=== PATIENT | male | born 1975 | race African-American/Black ===

== ENCOUNTER 2024-08-18 12:33 | Outpatient (OUT) | payer OTHER, SELFPAY ==
--- NOTE | 2024-08-18 13:45 | P.CN_ITS ---
Consult Note: HPI Data of Consult Patient: new to practice Consult date: 08/18/24 Requesting Physician: Sunny Goetz MD Primary Care Provider: SAGE MCDOWELL Consult Narrative Reason for consult: bilateral elbow, forearm, hand pain Narrative: 49yom who presents for evaluation. worsening pain in bilateral elbows, hands, forearms. denies trauma. previously had emg ordered, but was unable to have this completed. has continued in a series of provider directed home exericses >6 weeks, without lasting benefit. tried mobic, without benefit. uses tizanidine to help sleep. denies adverse med side effects. cc:: CC: Sunny Goetz MD Review of Systems ROS Status of ROS 10 or more systems reviewed and unremark able except as noted in history and below Exam Narrative Exam Narrative: Psych-alert and oriented x 3.? Attentive and appropriate, constitutionally normal, displays normal mood and affect per situation.? There are no obvious deficits in memory, reasoning, or intellect.? Skin-no obvious rashes, bruising, or erythema noted to the patient's area of pain.? Extremities-upper extremities are warm with minimal edema and palpable pulses. Cervical- no tenderness to palpation noted in the cervical spine and paraspinal musculature.? Pain is elicited with flexion, extension, and lateral rotation of the cervical spine.? Range of motion is diminished due to pain. Facet loading maneuvers are negative.? Strength-unremarkable and within normal limits with the exception to the bilateral extensor carpi radialis longus.? Sensory-no notable sensory deficits in the bilateral upper extremities to touch or pinprick with the exception to decreased sensation to the bilateral distal upper extremities. Coordination remains intact.? Gait remains non-antalgic. 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 failed conservative measures, as noted. given worsening symptoms, will have him get bilateral elbow and hand xrays, as well as emg of bilateral upper extremities to assess for ulnar neuropathy. he is in agreement. meds reviewed. will trial gabapentin 300mg qhs. follow up after imaging.
== END 2024-08-18 12:34 | disposition home or self-care (01) ==
LOC: PM 12:34
PROVIDERS: PCP Nurse Practitioner; Visit Provider Anesthesiology
DX: M25.521 Pain in right elbow (principal); M79.642 Pain in left hand; G56.20 Lesion of ulnar nerve, unspecified upper limb
CPT/HCPCS: G0463

== ENCOUNTER 2024-08-27 11:16 | Outpatient (OUT) | payer OTHER, SELFPAY ==
--- NOTE | 2024-08-27 11:28 | XR_ITS ---
The [address] [address] Patient Name: SIOBHAN QUIROZ MRN: [id number] date: 1975 Sex: M Assigned Patient Location: [facility] Current Patient Location: [facility] Accession/Order Number: [id number] Exam Date: 08/27/2024 11:35 Report Date: 08/27/2024 12:51 At the request of: ELVIA WARE Procedure: XR elbow RUSTY min 3v EXAMINATION: XR elbow RUSTY min 3v HISTORY: Bilateral Elbow Pain COMPARISON: No relevant comparison available. FINDINGS: RIGHT FINDINGS: BONES: Normal. No significant arthropathy or acute abnormality. SOFT TISSUES: Negative. No visible soft tissue swelling. OTHER: Negative. LEFT FINDINGS: BONES: Normal. No significant arthropathy or acute abnormality. SOFT TISSUES: Negative. No visible soft tissue swelling. OTHER: Negative. XR/XR elbow RUSTY min 3v IMPRESSION: RIGHT CONCLUSION: No abnormality LEFT CONCLUSION: No abnormality Electronically authenticated by: BARBARA GUTIERREZ Date: 08/27/2024 12:51
--- NOTE | 2024-08-27 11:28 | XR_ITS ---
The [address] [address] Patient Name: SIOBHAN QUIROZ MRN: [id number] date: 1975 Sex: M Assigned Patient Location: [facility] Current Patient Location: [facility] Accession/Order Number: [id number] Exam Date: 08/27/2024 11:35 Report Date: 08/27/2024 12:18 At the request of: ELVIA WARE Procedure: XR hand RUSTY min 3v EXAMINATION: XR hand RUSTY min 3v HISTORY: Bilateral Hand Pain COMPARISON: No relevant comparison available. FINDINGS: RIGHT FINDINGS: BONES: Normal. No significant arthropathy or acute abnormality. SOFT TISSUES: Negative. No visible soft tissue swelling. OTHER: Negative. LEFT FINDINGS: BONES: Subchondral cystic changes head of the third proximal phalanx SOFT TISSUES: Negative. No visible soft tissue swelling. OTHER: Negative. XR/XR hand RUSTY min 3v IMPRESSION: Right. No acute abnormality LEFT. Subchondral cystic changes head of the third proximal phalanx. Electronically authenticated by: BARBARA GUTIERREZ Date: 08/27/2024 12:18
--- OUTSIDE RECORDS SUMMARY | 2024-08-27 11:37 | XMS_ITS | CCD ---
Author Organization [facility] Inform ion [facility] Care Team Providers Care Door Closer Name Role Phone CARMEN SALAZAR Admitting Unavailable CARMEN SALAZAR Attending Unavailable REQUEST, NONE LISTED Primary Care Unavailable BARBARA GUTIERREZ V Consulting Unavailable BRODIE AYALA Consulting Unavailable MARTIN, CARMEN Faustin Consulting Unavailable KAREEM, TAPAN Consulting Unavailable [facility] Admitting Unava ilable [facility] Attending Unava ilable BARBARA GUTIERREZ V Consulting Unavailable [facility] Consulting Unava ilable MISC, DOCTOR Admitting Unavailable MISC, DOCTOR Attending Unavailable MISC, DOCTOR Primary Care Unavailable MISC, DOCTOR Consulting Unavailable MADAY GUDINO Admitting Unavailable BEERMAN, MADAY Attending Unavailable MISC, DOCTOR Primary Care Unavailable MADAY GUDINO Consulting Unavailable Robin, Bertha Barroso Primary Care Physician Robin, Bertha Barroso Attending Unavailable Robin, Bertha Barroso Attending Unavailable Robin, Bertha Barroso Attending Unavailable Robin, Bertha Barroso Attending Unavailable Robin, Bertha Barroso Attending Unavailable Robin, Bertha Barroso Admitting Unavailable Robin, Bertha Barroso Attending Unavailable Sunny Goetz MD Attending Unavailable Problems Active Problems Problem Classification Problem Date Documented Da te Episodic/Chronic Abdominal pain (5 sources) Unspecified abdominal pain; Translations: [Epigastric pain] Onset: 05-07-2019 Episodic Diabetes mellitus without complication (1 source) Prediabetes; Translations: [PREDIABETES] Onset: 05-07-2019 Other nervous system disorders (1 source) Carpal tunnel syndrome 09-26-2023 Chronic Other upper respiratory infections (1 source) Chronic sinusitis, unspecified; Translations: [CHRONIC SINUSITIS UNSPECIFIED] Onset: 05-07-2019 Chronic Pancreatic disorders (not diabetes) (4 sources) Acute pancreatitis without necrosis or infection, unspecified; Translations: [ACUTE PANCREATITIS WO NECRS/INF UNS] Onset: 06-26-2019 Unclassified (2 sources) Patient encounter status 09-26-2023 Past or Other Problems Problem Classification Problem Date Documented Da te Episodic/Chronic Headache; including migraine (1 source) Headache; Translations: [HEADACHE] Onset: 05-07-2019 Episodic Results Test Name Value Interpretation Reference Range Facility Family Medicine Office/Clini c Noteon 08-12-2024 Family Medicine Office/Clinic Note Family Medicine Office/Clinic Note HPI Staff Artur is a 49 year old male presenting follow up wrist pain Pain characteristics: SARMAD 05/30/24 EMG was ordered Called pt 08/11/24 he states he never had EMG done he had forgot about the order. Pain location: Bilateral wrist Onset: Right wrist worse and left wrist same Medication used: Right side is worse since the ASRMAD. Pt has been wearing brace, gloves, heat, ice, icy hot. Right wrist if holding things for more than a few minutes will have throbbing, dull ache, feels weak and then will have numbness in his thumb. Left wrist wrist will get dull ache will numbness to left elbow. Having a hard time sleeping. History of Present Illness pt presents today with worsening writs pain. right more than left Review of Systems PHQ Score Initial Depression Screen Score: 0 SCORE Physical Exam Vitals & Measurements HR: 64(Peripheral) RR: 18 BP: 130/82 HT: 66 in HT: 167.8 cm WT: 101.3 kg WT: 223.328 lb BMI: 35.98 General: alert, no acute distress ENMT: oral mucosa moist, no pharyngeal erythema or exudate Cardiovascular: regular rate and rhythm, normal peripheral perfusion Respiratory: Lungs CTA, respirations non labored Extremities: no deformity, no trauma Neurological: oriented x 4, LOC appropriate for age, CN II-XII intact, motor strength equal & normal bilaterally, speech normal positive Phalens and Tinels sign on exam today Assessment/Plan 1. Bilateral wrist pain (M25.531: Pain in right wrist) pt c/o worsening wrist pain. right more than left. he is struggling to do anything with right wrist and hand. thumb keeps going numb. difficult to grasp things. has been wearing braces. EMG re ordered through [facility] in [place]. will send referral to pain management in [place] as well. Ordered: EMG Bilateral Upper Extremity (BUE) [facility] [place], [place] External Ambulatory Referral 2. Carpal tunnel syndrome (G56.00: Carpal tunnel syndrome, unspecified upper limb) discussed he will eventually need surgery but he is not interested or able to have surgery at this time. will send referral to pain management for further evaluation and treatment. medrol dose pack sent in he will also continue meloxicam Ordered: EMG Bilateral Upper Extremity (BUE) [facility] [place] [place] External Ambulatory Referral 3. BMI 35.0-35.9,adult (Z68.35: Body mass index [BMI] 35.0-35.9, adult) BMI education given Ordered: EMG Bilateral Upper Extremity (BUE) [facility] [place] [place] External Ambulatory Referral 4. Non-smoker (Z78.9: Other specified health status) continue not smoking Ordered: EMG Bilateral Upper Extremity (BUE) [facility] [place] [place] External Ambulatory Referral Orders: methylPREDNISolone, = 1 packet(s), Oral, Once, as directed on package labeling, # 21 tab(s), Refills(s) 0, Pharmacy: [facility]/pharmacy #[id number], 176.8, cm, 05/30/24 11:38:00 EST, Height/Length Dosing, 99.3, kg, 05/30/24 11:38:00 EST, Weight Dosing methylPREDNISolone, = 1 packet(s), Oral, Once, as directed on package labeling, # 21 tab(s), Refills(s) 0, Pharmacy: [facility] #[id number], 167.8, cm, 08/11/24 15:33:00 EST, Height/Length Dosing, 101.3, kg, 08/11/24 15:33:00 EST, Weight Dosing Follow-up No qualifying data available Problem List/Past Medical History Ongoing Bilateral wrist pain Carpal tunnel syndrome Colon cancer screening Left shoulder pain Obesity (BMI 30-39.9) Wellness examination Historical No qualifying data Procedure/Surgical History Surgery (2015). Medications meloxicam 15 mg Tab, 15 mg= 1 tab(s), Oral, Daily methylPREDNISolone 4 mg tab dosepak, 1 packet(s), Oral, Once Allergies No Known Allergies Social History Substance Abuse Past, 1-2 times per week, Ready to change: No., 09/26/2023 Tobacco Former smoker, quit more than 30 days ago Tobacco Use:. Never Smokeless Tobacco Use:. Cigarettes, Household tobacco concerns: No., 05/30/2024 [facility] Comment on above: Result Comment: Elec lindsayally Signed By: Bertha Shepard\.br\Date and Time Signed: 08/12/24 09:46 EST Ambulatory Visit Summaryon 0 08-11-2024 Ambulatory Visit Summary Ambulatory Visit Summary ARTUR PHAM :1975 Visit Date:08/11/2024 Ambulatory Visit Instructions Your Diagnosis BMI 35.0-35.9,adult Non-smoker Your Care Team Attending Physician - Bertha Shepard Primary Care Physician - Bertha Shepard This Is Your Medications List meloxicam (meloxicam 15 mg Tab) Procedures Performed Surgery (2015). Discharge Vitals Heart Rate (Peripheral) 64 Respiratory Rate 18 Blood Pressure 130/82 Height 167.8 cm Height 66 in Weight 101.3 kg Weight 223.328 lb BMI 35.98 Medications What How Much When Instructions Unchanged meloxicam (meloxicam 15 mg Tab) 1 Tablets By Mouth Every day Allergies No Known Allergies Problems Ongoing - Any problem that you are currently receiving treatment for. Carpal tunnel syndrome Colon cancer screening Left shoulder pain Obesity (BMI 30-39.9) Wellness examination Patient Survey You may receive a survey via text or e-mail asking about your office visit. Please share your experience with us by completing your survey. We appreciate your feedback and thank you for choosing us for your care. [facility] Family Medicine Office/Clini c Noteon 05-30-2024 Family Medicine Office/Clinic Note Family Medicine Office/Clinic Note Chief Complaint Rt hand tingling HPI Staff Rt hand pain & tingling for the past few months. Does wake him at night. OTC Tylenol & Aleve do help some with pain. History of Present Illness pt presents today for worsening carpal tunnel symptoms Review of Systems PHQ Score Initial Depression Screen Score: 0 SCORE Physical Exam Vitals & Measurements T: 36.9 ???C(Tympanic) HR: 72(Peripheral) RR: 18 BP: 130/82 SpO2: 97% HT: 70 in HT: 176.8 cm WT: 99.3 kg WT: 218.919 lb BMI: 31.77 General: alert, no acute distress ENMT: oral mucosa moist, no pharyngeal erythema or exudate Cardiovascular: regular rate and rhythm, normal peripheral perfusion Respiratory: Lungs CTA, respirations non labored Extremities: no deformity, no trauma Neurological: oriented x 4, LOC appropriate for age, CN II-XII intact, motor strength equal & normal bilaterally, speech normal Assessment/Plan 1. Carpal tunnel syndrome (G56.00: Carpal tunnel syndrome, unspecified upper limb) right lower arm, wrist hand pain and tingling is worsening. will order EMG, Medrol dose pack and meloxicam. discussed referral for surgery but he is not ready for that quite yet. 2. BMI 31.0-31.9,adult (Z68.31: Body mass index [BMI] 31.0-31.9, adult) BMI education given 3. Obesity (BMI 30-39.9) (E66.9: Obesity, unspecified) see above 4. Former smoker (Z87.891: Personal history of nicotine dependence) continue not smokin Orders: meloxicam, 15 mg = 1 tab(s), Oral, Daily, # 90 tab(s), Refills(s) 0, Pharmacy: [facility] #[id number], 176.8, cm, 11/20/23 16:07:00 EDT, Height/Length Dosing, 96.3, kg, 11/20/23 16:07:00 EDT, Weight Dosing meloxicam, 15 mg = 1 tab(s), Oral, Daily, # 90 tab(s), Refills(s) 0, Pharmacy: [facility]/pharmacy #[id number], 176.8, cm, 05/30/24 11:38:00 EST, Height/Length Dosing, 99.3, kg, 05/30/24 11:38:00 EST, Weight Dosing methylPREDNISolone, = 1 packet(s), Oral, Once, as directed on package labeling, # 21 tab(s), Refills(s) 0, Pharmacy: [facility] #[id number], 176.8, cm, 11/20/23 16:07:00 EDT, Height/Length Dosing, 96.3, kg, 11/20/23 16:07:00 EDT, Weight Dosing methylPREDNISolone, = 1 packet(s), Oral, Once, as directed on package labeling, # 21 tab(s), Refills(s) 0, Pharmacy: [facility]/pharmacy #[id number], 176.8, cm, 05/30/24 11:38:00 EST, Height/Length Dosing, 99.3, kg, 05/30/24 11:38:00 EST, Weight Dosing Follow-up No qualifying data available Problem List/Past Medical History Ongoing Carpal tunnel syndrome Colon cancer screening Left shoulder pain Obesity (BMI 30-39.9) Wellness examination Historical No qualifying data Procedure/Surgical History Surgery (2015). Medications meloxicam 15 mg Tab, 15 mg= 1 tab(s), Oral, Daily methylPREDNISolone 4 mg tab dosepak, 1 packet(s), Oral, Once Allergies No Known Allergies Social History Substance Abuse Past, 1-2 times per week, Ready to change: No., 09/26/2023 Tobacco Former smoker, quit more than 30 days ago Tobacco Use:. Never Smokeless Tobacco Use:. Cigarettes, Household tobacco concerns: No., 05/30/2024 [facility] Comment on above: Result Comment: Elec tronically Signed By: Bertha Shepard\.br\Date and Time Signed: 05/30/24 12:22 EST Physician Orderon 11-21-2023 Physician Order [id number] TIFF [facility] Ambulatory Visit Summaryon 0 11-20-2023 Ambulatory Visit Summary ARTUR PHAM :1975 Visit Date:11/20/2023 Ambulatory Visit Instructions Your Diagnosis Left shoulder pain BMI 30.0-30.9,adult Former smoker Your Care Team Attending Physician - Bertha Shepard Primary Care Physician - Bertha Shepard This Is Your Medications List meloxicam (meloxicam 15 mg Tab) methylPREDNISolone (methylPREDNISolone 4 mg tab dosepak) Procedures Performed Surgery (2016). Discharge Vitals Heart Rate (Peripheral) 74 Respiratory Rate 18 Blood Pressure 122/80 Height 176.8 cm Height 70 in Weight 96.30 kg Weight 211.86 lb BMI 30.81 Medications What How Much When Instructions Unchanged meloxicam (meloxicam 15 mg Tab) 1 Tablets By Mouth Every day Pickup at [facility] #[id number] Unchanged methylPREDNISolone (methylPREDNISolone 4 mg tab dosepak) 1 Packets By Mouth Once as directed on package labeling Pickup at [facility] #[id number] Pharmacy Information [facility] #[id number]: [address], [place] [id number] [phone] Allergies No Known Allergies Problems Ongoing - Any problem that you are currently receiving treatment for. Carpal tunnel syndrome Colon cancer screening Left shoulder pain Wellness examination Patient Survey You may receive a survey via text or e-mail asking about your office visit. Please share your experience with us by completing your survey. We appreciate your feedback and thank you for choosing us for your care. [facility] Family Medicine Office/Clini c Noteon 11-20-2023 Family Medicine Office/Clinic Note HPI Staff Patient presents today for acute visit. Pain characteristics: Pain location: left shoulder blade pain Intensity:5/10 Onset: 2 weeks Medication used: Motrin Intermittent, Aching/burning, no injury that he knows of. Does have Radiculopathy down left arm. Reaching forward. History of Present Illness pt c/o left shoulder pain Review of Systems PHQ Score Initial Depression Screen Score: 0 SCORE Physical Exam Vitals & Measurements HR: 74(Peripheral) RR: 18 BP: 122/80 SpO2: 96% HT: 70 in HT: 176.8 cm WT: 96.30 kg WT: 211.86 lb BMI: 30.81 General: alert, no acute distress ENMT: oral mucosa moist, no pharyngeal erythema or exudate Cardiovascular: regular rate and rhythm, normal peripheral perfusion Respiratory: Lungs CTA, respirations non labored Extremities: no deformity, no trauma Neurological: oriented x 4, LOC appropriate for age, CN II-XII intact, motor strength equal & normal bilaterally, speech normal Assessment/Plan 1. Left shoulder pain (M25.512: Pain in left shoulder) Left shoulder pain more in the back by scapula and it wraps around and down his arm. will order meloxicam, medrol dose pack and x ray. pt states he previously had bone spurs in right shoulder. 2. BMI 30.0-30.9,adult (Z68.30: Body mass index [BMI] 30.0-30.9, adult) BMI education complete 3. Former smoker (Z87.891: Personal history of nicotine dependence) continue not smoking Orders: meloxicam, 15 mg = 1 tab(s), Oral, Daily, # 90 tab(s), Refills(s) 0, Pharmacy: [facility] #[id number], 176.8, cm, 11/20/23 16:07:00 EDT, Height/Length Dosing, 96.3, kg, 11/20/23 16:07:00 EDT, Weight Dosing meloxicam, 15 mg = 1 tab(s), Oral, Daily, # 30 tab(s), Refills(s) 5, Pharmacy: [facility] #[id number], 176.8, cm, 10/15/23 10:24:00 EDT, Height/Length Dosing, 97.5, kg, 10/15/23 10:24:00 EDT, Weight Dosing methylPREDNISolone, = 1 packet(s), Oral, Once, as directed on package labeling, # 21 tab(s), Refills(s) 0, Pharmacy: [facility] #[id number], 176.8, cm, 11/20/23 16:07:00 EDT, Height/Length Dosing, 96.3, kg, 11/20/23 16:07:00 EDT, Weight Dosing methylPREDNISolone, = 1 packet(s), Oral, Once, as directed on package labeling, # 21 tab(s), Refills(s) 0, Pharmacy: [facility] #[id number], 176.8, cm, 10/15/23 10:24:00 EDT, Height/Length Dosing, 97.5, kg, 10/15/23 10:24:00 EDT, Weight Dosing Follow-up No qualifying data available Problem List/Past Medical History Ongoing Carpal tunnel syndrome Colon cancer screening Left shoulder pain Wellness examination Historical No qualifying data Procedure/Surgical History Surgery (2015). Medications meloxicam 15 mg Tab, 15 mg= 1 tab(s), Oral, Daily methylPREDNISolone 4 mg tab dosepak, 1 packet(s), Oral, Once Allergies No Known Allergies Social History Substance Abuse Past, 1-2 times per week, Ready to change: No., 09/26/2023 Tobacco Former smoker, quit more than 30 days ago Tobacco Use:. Cigarettes, Household tobacco concerns: No., 11/20/2023 [facility] Comment on above: Result Comment: Elec tronically Signed By: Bertha Shepard\.br\Date and Time Signed: 11/20/23 16:52 EDT Lab Reportson 11-05-2023 Lab Reports [id number] 0TIFF Normal [facility] Ambulatory Visit Summaryon 0 10-15-2023 Ambulatory Visit Summary ARTUR PHAM :1975 Visit Date:10/15/2023 Ambulatory Visit Instructions Your Diagnosis BMI 31.0-31.9,adult Former smoker Marijuana use Your Care Team Attending Physician - Bertha Shepard Primary Care Physician - Bertha Shepard This Is Your Medications List meloxicam (meloxicam 15 mg Tab) Procedures Performed Surgery (2015). Discharge Vitals Heart Rate (Peripheral) 70 Respiratory Rate 18 Blood Pressure 122/80 Height 176.8 cm Height 70 in Weight 97.5 kg Weight 214.5 lb BMI 31.19 Medications What How Much When Instructions Unchanged meloxicam (meloxicam 15 mg Tab) 1 Tablets By Mouth Every day Allergies No Known Allergies Problems Ongoing - Any problem that you are currently receiving treatment for. Carpal tunnel syndrome Colon cancer screening Wellness examination Patient Survey You may receive a survey via text or e-mail asking about your office visit. Please share your experience with us by completing your survey. We appreciate your feedback and thank you for choosing us for your care. Normal [facility] Family Medicine Office/Clini c Noteon 10-15-2023 Family Medicine Office/Clinic Note HPI Staff Artur is a 48 year old male presenting for acute visit SARMAD: 09/26/23 Carpal tunnel Bilaterally, started Medrol dose pack and meloxicam, did discuss surgery but pt stated he wasn't ready for surgery. Does wears braces at night Current Concerns: pt states the meloxicam did help he hasn't had any pain. Pt isn't wearing braces anymore and states he has no more burning or numbness and is able to sleep at night History of Present Illness pt presents today for follow up on carpal tunnel pain Review of Systems PHQ Score Initial Depression Screen Score: 0 SCORE Physical Exam Vitals & Measurements HR: 70(Peripheral) RR: 18 BP: 122/80 SpO2: 98% HT: 70 in HT: 176.8 cm WT: 97.5 kg WT: 214.5 lb BMI: 31.19 General: alert, no acute distress ENMT: oral mucosa moist, no pharyngeal erythema or exudate Cardiovascular: regular rate and rhythm, normal peripheral perfusion Respiratory: Lungs CTA, respirations non labored Extremities: no deformity, no trauma Neurological: oriented x 4, LOC appropriate for age, CN II-XII intact, motor strength equal & normal bilaterally, speech normal Assessment/Plan 1. Carpal tunnel syndrome (G56.00: Carpal tunnel syndrome, unspecified upper limb) RUSTY wrists are feeling much better. pt does not need to use his wrist braces even anymore. will send refills. all questions answered. RTC 1 year for annual wellness labs 2. BMI 31.0-31.9,adult (Z68.31: Body mass index [BMI] 31.0-31.9, adult) bmi eduction complete 3. Former smoker (Z87.891: Personal history of nicotine dependence) continue not smoking 4. Marijuana use (F12.90: Cannabis use, unspecified, uncomplicated) consider not using marijuana Orders: meloxicam, 15 mg = 1 tab(s), Oral, Daily, # 30 tab(s), Refills(s) 0, Pharmacy: [facility] #[id number], 176.8, cm, 09/26/23 9:25:00 EDT, Height/Length Dosing, 95.9, kg, 09/26/23 9:25:00 EDT, Weight Dosing meloxicam, 15 mg = 1 tab(s), Oral, Daily, # 30 tab(s), Refills(s) 5, Pharmacy: [facility] #[id number], 176.8, cm, 10/15/23 10:24:00 EDT, Height/Length Dosing, 97.5, kg, 10/15/23 10:24:00 EDT, Weight Dosing methylPREDNISolone, = 1 packet(s), Oral, Once, as directed on package labeling, # 21 tab(s), Refills(s) 0, Pharmacy: [facility] #[id number], 176.8, cm, 10/15/23 10:24:00 EDT, Height/Length Dosing, 97.5, kg, 10/15/23 10:24:00 EDT, Weight Dosing Follow-up No qualifying data available Problem List/Past Medical History Ongoing Carpal tunnel syndrome Colon cancer screening Wellness examination Historical No qualifying data Procedure/Surgical History Surgery (2016). Medications meloxicam 15 mg Tab, 15 mg= 1 tab(s), Oral, Daily, 5 refills methylPREDNISolone 4 mg tab dosepak, 1 packet(s), Oral, Once Allergies No Known Allergies Social History Substance Abuse Past, 1-2 times per week, Ready to change: No., 09/26/2023 Tobacco Former smoker, quit more than 30 days ago Tobacco Use:. Cigarettes, Household tobacco concerns: No., 10/15/2023 [facility] Comment on above: Result Comment: Elec tronically Signed By: Bertha Shepard\.br\Date and Time Signed: 10/15/23 10:42 EDT Formson 10-15-2023 Forms [id number] 0TIFF [facility] Reminderson 10-02-2023 Reminders - From: Bertha Shepard To: [facility] - Clinical; Sent: 09/27/2023 08:17:25 EDT Show up: 09/27/2023 08:18:00 EDT Subject: Ambulatory Reminder Due Date/Time: 09/28/2023 08:17:00 EDT Labs look good Results: Date Result Name Ind Value Ref Range 09/26/2023 9:43 WBC 4.3 E9/L (4.0 - 11.0) 09/26/2023 9:43 RBC 5.2 E12/L (4.3 - 5.9) 09/26/2023 9:43 HGB 15.0 gm/dL (13.5 - 17.5) 09/26/2023 9:43 Hct 46.2 % (37.7 - 49.0) 09/26/2023 9:43 MCV 89.7 fL (80.0 - 100.0) 09/26/2023 9:43 MCH 29.1 pg (27.0 - 34.0) 09/26/2023 9:43 MCHC 32.5 gm/dL (31.4 - 36.0) 09/26/2023 9:43 RDW 13.3 % (10.9 - 14.2) 09/26/2023 9:43 Platelet 209.0 E9/L (150.0 - 500.0) 09/26/2023 9:43 MPV 9.2 fL (6.4 - 10.8) 09/26/2023 9:43 Neutro Auto 42.5 % (36.0 - 75.0) 09/26/2023 9:43 Lymph Auto 40.6 % (14.0 - 50.0) 09/26/2023 9:43 [place] Auto 9.3 % (4.0 - 14.0) 09/26/2023 9:43 Eos Auto 5.5 % (0.0 - 8.0) 09/26/2023 9:43 Basophil Auto ((H)) 2.1 % (0.0 - 2.0) 09/26/2023 9:43 Neutro Absolute ((L)) 1.8 E9/L (2.0 - 7.5) 09/26/2023 9:43 Lymph Absolute 1.8 E9/L (1.0 - 4.0) 09/26/2023 9:43 [place] Absolute 0.4 E9/L (0.2 - 1.0) 09/26/2023 9:43 Eos Absolute 0.2 E9/L (0.0 - 0.5) 09/26/2023 9:43 Basophil Absolute 0.1 E9/L (0.0 - 0.2) 09/26/2023 9:43 Glucose Lvl 95 mg/dL (55 - 199) 09/26/2023 9:43 BUN 20 mg/dL (5 - 21) 09/26/2023 9:43 Creatinine 0.8 mg/dL (0.5 - 1.3) 09/26/2023 9:43 eGFR 108 mL/min/1.73 m2 (>=59 - ) 09/26/2023 9:43 BUN/Creat Ratio ((H)) 25 (10 - 20) 09/26/2023 9:43 Sodium Lvl 138 mmol/L (135 - 145) 09/26/2023 9:43 Potassium Lvl 3.9 mmol/L (3.5 - 5.3) 09/26/2023 9:43 Chloride 108 mmol/L (101 - 111) 09/26/2023 9:43 CO2 23 mmol/L (21 - 31) 09/26/2023 9:43 AGAP 11 mEq/L (6 - 16) 09/26/2023 9:43 Calcium Lvl 9.0 mg/dL (8.9 - 11.1) 09/26/2023 9:43 Alk Phos 70 Int._Unit/L (21 - 98) 09/26/2023 9:43 ALT 18 Int._Unit/L (6 - 46) 09/26/2023 9:43 AST 18 Int._Unit/L (5 - 43) 09/26/2023 9:43 Total Protein 7.2 gm/dL (6.0 - 7.8) 09/26/2023 9:43 Albumin Lvl 4.6 gm/dL (3.3 - 5.0) 09/26/2023 9:43 Globulin 2.6 gm/dL (1.4 - 4.0) 09/26/2023 9:43 A/G Ratio 1.8 (1.1 - 2.2) 09/26/2023 9:43 Bili Total 0.6 mg/dL (0.0 - 1.1) 09/26/2023 9:43 Chol ((H)) 201 mg/dL (120 - 200) 09/26/2023 9:43 Trig 61 mg/dL ( - <=149) 09/26/2023 9:43 HDL 57 mg/dL 09/26/2023 9:43 LDL Direct 126 mg/dL ( - <=129) 09/26/2023 9:43 VLDL 12 mg/dL (7 - 40) 09/26/2023 9:43 TSH 0.39 mcIU/mL (0.34 - 5.60) 09/26/2023 9:43 PSA Scrn Tot. 1.2 ng/mL (0.1 - 3.5) Patient informed and voiced understanding. Normal [facility] CBC w/ Auto Diffon 4 Basophils/100 WBC (Bld) 2.1 % High 0.0-2.0 [facility] Comment on above: Performed By: #### 1 [id number] #### [facility] [address] [place] [address] Basophils/Leukocytes Auto (Bld) [Pure # fraction] 0.1 E9/L Normal 0.0-0.2 [facility] Comment on above: Performed By: #### 1 [id number] #### [facility] [address] [place] [address] Eosinophils (Bld) [#/Vol] 0.2 E9/L Normal 0.0-0.5 [facility] Comment on above: Performed By: #### 1 [id number] #### [facility] [address] [place] [id number] Eosinophils/100 WBC (Bld) 5.5 % Normal 0.0-8.0 [facility] Comment on above: Performed By: #### 1 [id number] [id number], [id number], [id number] #### [facility] [address] [place] [address] Erythrocyte distribution width (RBC) [Ratio] 13.3 % Normal 10.9-14.2 [facility] Comment on above: Performed By: #### 1 [id number], [id number], [id number], [id number] #### [facility] [address] [place] [address] Hematocrit (Bld) [Volume fraction] 46.2 % Normal 37.7-49.0 [facility] Comment on above: Performed By: #### 1 [id number], [id number], 2325859, 1175347, 5000647, [id number] #### [facility] [address] [place] [address] Hemoglobin (Bld) [Mass/Vol] 15.0 g/dL Normal 13.5-17.5 [facility] Comment on above: Performed By: #### 1 6983027, 7278128, 9727967, 2808055, 1811546, 52772101 #### [facility] [address] [place] [address] Lymphocytes (Bld) [#/Vol] 1.8 E9/L Normal 1.0-4.0 [facility] Comment on above: Performed By: #### 1 8896200, 3546406, 8913076, 9044480, 6743509, 80998603 #### [facility] [address] [place] [address] Lymphocytes/100 WBC (Bld) 40.6 % Normal 14.0-50.0 [facility] Comment on above: Performed By: #### 1 9145562, 6826188, 3582164, 6268223, 1079388, 34173690 #### [facility] [address] [place] [address] MCH (RBC) [Entitic mass] 29.1 pg Normal 27.0-34.0 [facility] Comment on above: Performed By: #### 1 4711900, 7512382, 7312163, 7145705, 9165802, 14273078 #### [facility] [address] [place] [address] MCHC (RBC) [Mass/Vol] 32.5 g/dL Normal 31.4-36.0 [facility] Comment on above: Performed By: #### 1 3046877, 6162794, 3638240, 4871424, 5834456, 69196052 #### [facility] [address] [place] [address] MCV (RBC) [Entitic vol] 89.7 fL Normal 80.0-100.0 [facility] Comment on above: Performed By: #### 1 7952257, 6068653, 9579606, 7891296, 1779222, 80927349 #### [facility] [address] [place] [address] Monocytes (Bld) [#/Vol] 0.4 E9/L Normal 0.2-1.0 [facility] Comment on above: Performed By: #### 1 7285426, 0284974, 3087415, 7721452, 1371342, 52794122 #### [facility] [address] [place] [address] Neutrophils (Bld) [#/Vol] 1.8 E9/L Low 2.0-7.5 [facility] Comment on above: Performed By: #### 1 2355493, 9487436, 3662433, 8707476, 0404080, 26758988 #### [facility] [address] [place] [address] Neutrophils/100 WBC (Bld) 42.5 % Normal 36.0-75.0 [facility] Comment on above: Performed By: #### 1 0049701, 3893229, 8844272, 2099006, 6907958, 63393831 #### [facility] [address] [place] [address] Platelet mean volume (Bld) [Entitic vol] 9.2 fL Normal 6.4-10.8 [facility] Comment on above: Performed By: #### 1 5667840, 8569180, 8576479, 8106093, 9477167, 61992469 #### [facility] [address] [place] [address] Platelets (Bld) [#/Vol] 209.0 E9/L Normal 150.0-500.0 [facility] Comment on above: Performed By: #### 1 5758933, 5297338, 0858217, 3854825, 2687619, 52408731 #### [facility] [address] [place] [address] RBC (Bld) [#/Vol] 5.2 E12/L Normal 4.3-5.9 [facility] Comment on above: Performed By: #### 1 1411899, 2246439, 3066298, 6954350, 4724022, 96160497 #### [facility] [address] [place] [address] WBC corrected for nucl RBC Auto (Bld) [#/Vol] 4.3 E9/L Normal 4.0-11.0 [facility] Comment on above: Performed By: #### 1 9164081, 7350534, 2446202, 2342379, 0549898, 45976882 #### [facility] [address] [place] [address] CHEMISTRYOrdered By: SYSTEM SYSTEM on 09-26-2023 Albumin [Mass/Vol] 4.6 g/dL Normal 3.3 - 5.0 gm/dL [facility] Albumin/Globulin [Mass ratio] 1.8 {ratio} Normal 1.1 - 2.2 [facility] ALP [Catalytic activity/Vol] 70 [iU]/d Normal 21 - 98 Int._Unit/L [facility] ALT No additional P-5'-P [Catalytic activity/Vol] 18 [iU]/d Normal 6 - 46 Int._Unit/L [facility] Anion gap [Moles/Vol] 11 mmol/L Normal 6 - 16 mEq/L R emisol Chem AST [Catalytic activity/Vol] 18 [iU]/d Normal 5 - 43 Int._Unit/L [facility] Bilirubin [Mass/Vol] 0.6 mg/dL Normal 0.0 - 1 .1 mg/dL [facility] Calcium [Mass/Vol] 9.0 mg/dL Normal 8.9 - 11. 1 mg/dL [facility] Chloride [Moles/Vol] 108 mmol/L Normal 101 - 1 11 mmol/L [facility] Cholesterol [Mass/Vol] 201 mg/dL High 120 - 200 mg/dL [facility] Cholesterol in HDL [Mass/Vol] 57 mg/dL Invalid Interpretation Code [facility] Comment on above: Result Comment: '>= 60 LOW RISK' '<= 40 HIGH RISK' Cholesterol in LDL [Mass/Vol] 126 mg/dL Normal <=129mg/dL [facility] Cholesterol in VLDL [Mass/Vol] 12 mg/dL Normal 7 - 40 mg/dL [facility] CO2 [Moles/Vol] 23 mmol/L Normal 21 - 31 mmol/L [facility] Creatinine [Mass/Vol] 0.8 mg/dL Normal 0.5 - 1.3 mg/dL [facility] eGFR 108 mL/min/1.73 m2 Normal >=59mL/mi n/1. 73 m2 [facility] Globulin (S) [Mass/Vol] 2.6 g/dL Normal 1.4 - 4.0 gm/dL [facility] Glucose [Mass/Vol] 95 mg/dL Normal 55 - 199 mg/dL [facility] Potassium [Moles/Vol] 3.9 mmol/L Normal 3.5 - 5.3 mmol/L [facility] Prostate specific Ag [Mass/Vol] 1.2 ng/mL Normal 0.1 - 3.5 ng/mL [facility] Comment on above: Interpretive Data: T he concentration of PSA determined by different manufacturers can vary due to differences in assay methods and reagent specificity. Values obtained from different assay methods cannot be used interchangeably. The methodology used for this result was chemiluminescence using [employer] Access Hybritech PSA reagent. Protein [Mass/Vol] 7.2 g/dL Normal 6.0 - 7.8 gm/dL [facility] Sodium [Moles/Vol] 138 mmol/L Normal 135 - 145 mmol/L [facility] Triglyceride [Mass/Vol] 61 mg/dL Normal <=149mg/dL [facility] TSH Qn 0.39 m[IU]/L Normal 0.34 - 5.60 mcIU/mL [facility] Urea nitrogen [Mass/Vol] 20 mg/dL Normal 5 - 21 mg/dL [facility] Urea nitrogen/Creatinine [Mass ratio] 25 mg/mg High 10 - 20 [facility] CMPon 09-26-2023 Albumin [Mass/Vol] 4.6 g/dL Normal 3.3-5.0 [facility] Comment on above: Performed By: #### 1 2464904, 9086868, 1621525, 4364560, 5034831, 55927383 #### [facility] [address] [place] [address] Albumin/Globulin (S) [Mass conc ratio] 1.8 Normal 1.1-2.2 [facility] Comment on above: Performed By: #### 1 2620652, 4344584, 3073724, 2006884, 7278969, 04161469 #### [facility] [address] [place] [address] ALP [Catalytic activity/Vol] 70 Int._Unit/L Normal 21-98 [facility] Comment on above: Performed By: #### 1 0177855, 0432527, 8963449, 3732545, 9693938, 54658178 #### [facility] [address] [place] [address] ALT No additional P-5'-P [Catalytic activity/Vol] 18 Int._Unit/L Normal 6-46 [facility] Comment on above: Performed By: #### 1 6422066, 6598320, 7098788, 0114153, 2340146, 56899165 #### [facility] [address] [place] [address] Anion gap [Moles/Vol] 11 mmol/L Normal 6-16 [facility] Comment on above: Performed By: #### 1 6054452, 7019329, 9151350, 1633355, 8415686, 99724966 #### [facility] [address] [place] [address] AST [Catalytic activity/Vol] 18 Int._Unit/L Normal 5-43 [facility] Comment on above: Performed By: #### 1 6143486, 0747570, 3160076, 0886074, 6368444, 52294845 #### [facility] [address] [place] [address] Bilirubin [Mass/Vol] 0.6 mg/dL Normal 0.0-1.1 [facility] Comment on above: Performed By: #### 1 6197090, 6814938, 7875538, 8546780, 7540529, 77515281 #### [facility] [address] [place] [address] Calcium [Mass/Vol] 9.0 mg/dL Normal 8.9-11.1 [facility] Comment on above: Performed By: #### 1 0096106, 1493325, 2244421, 3289329, 0307441, 67428228 #### [facility] [address] [place] [address] Chloride [Moles/Vol] 108 mmol/L Normal 101-111 [facility] Comment on above: Performed By: #### 1 0323712, 2753072, 1085427, 5495697, 5288187, 98672093 #### [facility] [address] [place] [address] CO2 [Moles/Vol] 23 mmol/L Normal 21-31 [facility] Comment on above: Performed By: #### 1 9244474, 5241941, 0095834, 4940291, 9557850, 70937246 #### [facility] [address] [place] [address] Creatinine [Mass/Vol] 0.8 mg/dL Normal 0.5-1.3 [facility] Comment on above: Performed By: #### 1 1739801, 7406778, 3972921, 7516368, 9889751, 74729091 #### [facility] [address] [place] [address] Globulin (S) [Mass/Vol] 2.6 g/dL Normal 1.4-4.0 [facility] Comment on above: Performed By: #### 1 1542127, 6668830, 4015111, 7327080, 6445772, 91361229 #### [facility] [address] [place] [address] Glucose [Mass/Vol] 95 mg/dL Normal 55-199 [facility] Comment on above: Performed By: #### 1 4246679, 0501215, 0374193, 9535876, 3327576, 31475763 #### [facility] [address] [place] [address] Potassium [Moles/Vol] 3.9 mmol/L Normal 3.5-5.3 [facility] Comment on above: Performed By: #### 1 2523008, 1805000, 3074531, 3696734, 6008797, 06605157 #### [facility] [address] [place] [address] Protein [Mass/Vol] 7.2 g/dL Normal 6.0-7.8 [facility] Comment on above: Performed By: #### 1 8410142, 4180209, 1320970, 4701787, 0277904, 58998921 #### [facility] [address] [place] [address] Sodium [Moles/Vol] 138 mmol/L Normal 135-145 [facility] Comment on above: Performed By: #### 1 9766554, 4623881, 5795764, 8891540, 8821596, 65182373 #### [facility] [address] [place] [address] Urea nitrogen [Mass/Vol] 20 mg/dL Normal 5-21 [facility] Comment on above: Performed By: #### 1 2962644, 1626809, 9314066, 8803755, 4121377, 84007438 #### [facility] [address] [place] [address] Urea nitrogen/Creatinine [Mass ratio] 25 No Units High 10-20 [facility] Comment on above: Performed By: #### 1 2800111, 7922557, 7703745, 6600946, 0838580, 02612125 #### [facility] [address] [place] [address] Family Medicine Office/Clini c Noteon 09-26-2023 Family Medicine Office/Clinic Note HPI Staff Artur is a 48 year old male presenting to [facility] Establish Care: History: Any previous diagnosis: none History of seeing any specialist: When was your last doctors visit: Last provider: never had one Any recent labs: nothing within the last year Health Maintenance UTD: Colonoscopy: Pt hasn't never had one, would like Cologuard PSA: never had it checked Acute: Current issues/complaints: pain in bilateral hands onset 2-3 years worsening over the past 2-3 weeks. Bilateral thumbs feel numb. Bilateral pain starting at inner elbow shooting pain to index and middle fingers. Has been wearing bilateral carpel tunnel braces at night. Has helped some with the right hand, hasn't noticed a difference with the left. Pt states Left hand is worse than the right. Intermittent Pain 5/10 when having shooting pains , constant aching/throbbing in hands. History of Present Illness pt presents today for wellness visit. has not been to a doctor in years Review of Systems PHQ Score Initial Depression Screen Score: 0 SCORE Physical Exam Vitals & Measurements HR: 78(Peripheral) RR: 18 BP: 126/80 SpO2: 98% HT: 70 in HT: 176.8 cm WT: 95.9 kg WT: 210.98 lb BMI: 30.68 General: alert, no acute distress Skin: warm, dry Head: no trauma, normocephalic Neck: Trachea midline, thyroid not enlarged Eye: normal conjunctiva, sclera clear ENMT: oral mucosa moist, yes Cardiovascular: regular rate and rhythm, normal Respiratory: respirations non labored Chest wall: no deformity. Gastrointestinal: soft, non distended, no tenderness Back: No tenderness Extremities: no edema, no wound Neurological: awake, alert, oriented, speech normal Psychiatric: cooperative, affect appropriate for age Assessment/Plan 1. Wellness examination (Z00.00: Encounter for general adult medical examination without abnormal findings) pt presents today for wellness visit. has not had a PCP in years. over due for lab work. pt only complaint is carpal tunnel symptoms. Ordered: CBC w/ Auto Diff Comprehensive Metabolic Panel Lab Specimen Collect [id number] Lipid Panel PSA Screen, Total Thyroid Stimulating Hormone 2. Carpal tunnel syndrome (G56.00: Carpal tunnel syndrome, unspecified upper limb) pt wearing RUSTY braces. but not helping the pain much anymore. +Tinel and Phalen sign in office today. discussed referral for surgery. pt is not ready for surgery at this point. will order medrol dose pack and meloxicam. Ordered: CBC w/ Auto Diff Comprehensive Metabolic Panel Lab Specimen Collect [id number] Lipid Panel PSA Screen, Total Thyroid Stimulating Hormone 3. BMI 30.0-30.9,adult (Z68.30: Body mass index [BMI] 30.0-30.9, adult) BMI education complete Ordered: CBC w/ Auto Diff Comprehensive Metabolic Panel Lab Specimen Collect [id number] Lipid Panel PSA Screen, Total Thyroid Stimulating Hormone 4. Former smoker (Z87.891: Personal history of nicotine dependence) continue not smoking Ordered: CBC w/ Auto Diff Comprehensive Metabolic Panel Lab Specimen Collect [id number] Lipid Panel PSA Screen, Total Thyroid Stimulating Hormone 5. Screening for hyperlipidemia (Z13.220: Encounter for screening for lipoid disorders) lipid panel drawn Ordered: CBC w/ Auto Diff Comprehensive Metabolic Panel Lab Specimen Collect [id number] Lipid Panel PSA Screen, Total Thyroid Stimulating Hormone 6. Prostate cancer screening (Z12.5: Encounter for screening for malignant neoplasm of prostate) psa drawn in office today Ordered: CBC w/ Auto Diff Comprehensive Metabolic Panel Lipid Panel PSA Screen, Total Thyroid Stimulating Hormone 7. Colon cancer screening (Z12.11: Encounter for screening for malignant neoplasm of colon) cologuard ordered Ordered: Cologuard Screening Test Follow-up No qualifying data available Problem List/Past Medical History Ongoing Carpal tunnel syndrome Colon cancer screening Wellness examination Historical No qualifying data Procedure/Surgical History Surgery (2015). Medications No active medications Allergies No Known Allergies Social History Substance Abuse Past, 1-2 times per week, Ready to change: No., 09/26/2023 Tobacco Former smoker, quit more than 30 days ago Tobacco Use:. Cigarettes, Household tobacco concerns: No., 09/26/2023 Normal [facility] Comment on above: Result Comment: Elec tronically Signed By: Bertha Shepard\.br\Date and Time Signed: 09/26/23 10:33 EDT HEMATOLOGYOrdered By: SYSTEM SYSTEM on 09-26-2023 Basophils/100 WBC (Bld) 2.1 % High 0.0 - 2.0 % [facility] Basophils/Leukocytes Auto (Bld) [Pure # fraction] 0.1 E9/L Normal 0.0 - 0.2 E9/L [facility] Eosinophils (Bld) [#/Vol] 0.2 E9/L Normal 0.0 - 0.5 E9/L [facility] Eosinophils/100 WBC (Bld) 5.5 % Normal 0.0 - 8.0 % [facility] Erythrocyte distribution width (RBC) [Ratio] 13.3 % Normal 10.9 - 14.2 % [facility] Hematocrit (Bld) [Volume fraction] 46.2 % Normal 37.7 - 49.0 % [facility] Hemoglobin (Bld) [Mass/Vol] 15.0 g/dL Normal 13.5 - 17.5 gm/dL [facility] Lymphocytes (Bld) [#/Vol] 1.8 E9/L Normal 1.0 - 4.0 E9/L [facility] Lymphocytes/100 WBC (Bld) 40.6 % Normal 14.0 - 50.0 % [facility] MCH (RBC) [Entitic mass] 29.1 pg Normal 27.0 - 34.0 pg [facility] MCHC (RBC) [Mass/Vol] 32.5 g/dL Normal 31.4 - 36.0 gm/dL [facility] MCV (RBC) [Entitic vol] 89.7 fL Normal 80.0 - 100.0 fL [facility] Monocytes (Bld) [#/Vol] 0.4 E9/L Normal 0.2 - 1.0 E9/L [facility] Monocytes/100 WBC (Bld) 9.3 % Normal 4.0 - 14.0 % [facility] Neutrophils (Bld) [#/Vol] 1.8 E9/L Low 2.0 - 7.5 E9/L [facility] Neutrophils/100 WBC (Bld) 42.5 % Normal 36.0 - 75.0 % [facility] Platelet mean volume (Bld) [Entitic vol] 9.2 fL Normal 6.4 - 10.8 fL [facility] Platelets (Bld) [#/Vol] 209.0 E9/L Normal 150.0 - 500.0 E9/L [facility] RBC (Bld) [#/Vol] 5.2 E12/L Normal 4.3 - 5.9 E12/L [facility] WBC corrected for nucl RBC Auto (Bld) [#/Vol] 4.3 E9/L Normal 4.0 - 11.0 E9/L [facility] Lipid Panelon 09-26-2023 Cholesterol [Mass/Vol] 201 mg/dL High 120-200 [facility] Comment on above: Performed By: #### 1 0544198, 2673733, 4214851, 1381711, 5638545, 95477170 #### [facility] [address] [place] [address] Cholesterol in HDL [Mass/Vol] 57 mg/dL Invalid Interpretation Code [facility] Comment on above: Result Comment: '>= 60 LOW RISK' '<= 40 HIGH RISK' Performed By: #### 1 3124472, 5107553, 0605384, 1387456, 9572105, 22281061 #### [facility] [address] [place] [address] Cholesterol in LDL [Mass/Vol] 126 mg/dL Normal <=129 [facility] Comment on above: Performed By: #### 1 4928792, 0447300, 3377767, 1804479, 0460976, 35199167 #### [facility] [address] [place] [address] Cholesterol in VLDL [Mass/Vol] 12 mg/dL Normal 7-40 [facility] Comment on above: Performed By: #### 1 1795081, 4039632, 4860092, 8436409, 3261853, 62961136 #### [facility] [address] [place] [address] Triglyceride [Mass/Vol] 61 mg/dL Normal <=149 [facility] Comment on above: Performed By: #### 1 6129797, 9260259, 2919014, 5546255, 0059564, 26274820 #### [facility] [address] [place] [address] PSA Screen, Totalon 09-26-19 24 Prostate specific Ag [Mass/Vol] 1.2 ng/mL Normal 0.1-3.5 [facility] Comment on above: Result Comment: The concentration of PSA determined by different manufacturers can vary due to differences in assay methods and reagent specificity. Values obtained from different assay methods cannot be used interchangeably. The methodology used for this result was chemiluminescence using [employer] Hybr[employer] PSA reagent. Performed By: #### 1 [id number], 5057508, 8400787, 3178941, 5750044, 21041107 #### [facility] [address] [place] [address] TSHon 09-26-2023 TSH Qn 0.39 m[IU]/L Normal 0.34-5.60 [facility] Comment on above: Performed By: #### 1 8868301, 3776534, 5099122, 5876286, 1751638, 72931818 #### [facility] [address] [place] [address] eGFRon 09-26-2023 eGFR 108 mL/min/1.73 m2 Normal >=59 [facility] Comment on above: Order Comment: Order added by Discern Expert. Performed By: #### 1 2598471, 9969609, 0186099, 4550525, 2678872, 23363324 #### [facility] [address] [place] [address] AMYLASEon 08-19-2019 Amylase [Catalytic activity/Vol] 83 U/L Normal 31-110 [facility] Comment on above: Performed By: #### C ANNETTA BRITTONA, CMP #### [facility] [address] [place], [place] [address] Gage Fatou CBC AUTO DIFFon 08-19-2019 Basophils (Bld) [#/Vol] 0.1 103/ul Normal 0.0-0.1 [facility] Comment on above: Performed By: #### C RP, LIPA, CMP #### [facility] [address] [place] [address] Gage Fatou Basophils/100 WBC (Bld) 1.5 % Normal 0.2-2.0 [facility] Comment on above: Performed By: #### C RP, LIPA, CMP #### [facility] [address] [place] [address] Gage Fatou Eosinophils (Bld) [#/Vol] 0.2 103/ul Normal 0.0-0.7 [facility] Comment on above: Performed By: #### C RP, LIPA, CMP #### [facility] [address] [place] [address] Gage Fatou Eosinophils/100 WBC (Bld) 4.7 % Normal 0.9-7.0 [facility] Comment on above: Performed By: #### C RP LIPA, CMP #### [facility] [address] [place] [address] Gage Fatou Erythrocyte distribution width (RBC) [Ratio] 12.4 % Normal 11.0-15.0 [facility] Comment on above: Performed By: #### C RP, LIPA, CMP #### [facility] [address] [place] [address] Gage Fatou Hematocrit (Bld) [Volume fraction] 46.9 % Normal 42.0-54.0 [facility] Comment on above: Performed By: #### C RP LIPA, CMP #### [facility] [address] [place] [address] Gage Fatou Hemoglobin (Bld) [Mass/Vol] 15.8 g/dL Normal 14.0-18.0 [facility] Comment on above: Performed By: #### C RP LIPA, CMP #### [facility] [address] [place] [address] Gage Fatou IG # 0.01 10e3/ul Normal 0.00-0.03 [facility] Comment on above: Performed By: #### C RP LIPA, CMP #### [facility] [address] [place] [address] Gage Fatou IG % 0.2 % Normal 0.0-0.5 [facility] Comment on above: Performed By: #### C RP, LIPA, CMP #### [facility] [address] [place] [address] Gage Fatou Lymphocytes (Bld) [#/Vol] 1.8 103/ul Normal 1.2-3.8 [facility] Comment on above: Performed By: #### C RP, LIPA, CMP #### [facility] [address] [place] [address] Gage Fatou Lymphocytes/100 WBC (Bld) 37.7 % Normal 20.5-60.0 [facility] Comment on above: Performed By: #### C RP, LIPA, CMP #### [facility] [address] [place] [address] Gage Fatou MANUAL DIFF REQ NO Normal [facility] Comment on above: Performed By: #### C RP LIPA, CMP #### [facility] [address] [place], [place] [address] Gage Fatou MCH (RBC) [Entitic mass] 29.3 pg Normal 25.9-34.0 [facility] Comment on above: Performed By: #### C RP LIPA, CMP #### [facility] [address] [place] [address] Gage Fatou MCHC (RBC) [Mass/Vol] 33.7 g/dL Normal 29.9-35.2 [facility] Comment on above: Performed By: #### C RP LIPA, CMP #### [facility] [address] [place] [address] Gage Fatou MCV (RBC) [Entitic vol] 87.0 fL Normal 80.0-94.0 [facility] Comment on above: Performed By: #### C RP, LIPA, CMP #### [facility] [address] [place] [address] Gage Fatou Monocytes (Bld) [#/Vol] 0.5 103/ul Normal 0.3-0.8 [facility] Comment on above: Performed By: #### C RP, LIPA, CMP #### [facility] [address] [place], [place] [address] Ggae Fatou Monocytes/100 WBC (Bld) 10.6 % Normal 1.7-12.0 [facility] Comment on above: Performed By: #### C RP, LIPA, CMP #### [facility] [address] [place], [place] [address] Gage Fatou Neutrophils (Bld) [#/Vol] 2.1 103/ul Normal 1.4-6.5 [facility] Comment on above: Performed By: #### C RP, LIPA, CMP #### [facility] [address] [place] [address] Gage Fatou Neutrophils/100 WBC (Bld) 45.3 % Normal 43.0-75.0 [facility] Comment on above: Performed By: #### C RP, LIPA, CMP #### [facility] [address] [place] [address] Gagemoncho Lainez Platelet mean volume (Bld) [Entitic vol] 9.9 fL Normal 9.5-13.5 [facility] Comment on above: Performed By: #### C RP, LIPA, CMP #### [facility] [address] [place] [address] Gagemoncho Lainez Platelets (Bld) [#/Vol] 188 103/ul Normal 150-450 [facility] [facility] Comment on above: Performed By: #### C RP, LIPA, CMP #### [facility] [address] [place] [address] Gage Lainez RBC (Bld) [#/Vol] 5.39 106/ul Normal 4.70-6.10 [facility] Comment on above: Performed By: #### C RP, LIPA, CMP #### [facility] [address] [place] [address] Gagemoncho Lainez WBC (Bld) [#/Vol] 4.6 103/ul Normal 4.0-11.0 [facility] Comment on above: Performed By: #### C RP, LIPA, CMP #### [facility] [address] [place] [address] Gage Lainez LIPASEon 08-19-2019 Lipase [Catalytic activity/Vol] 160.0 U/L Normal 23.0-300.0 [facility] Comment on above: Performed By: #### C RP, LIPA, CMP #### [facility] [address] [place] [address] Gagemoncho Fernandezen PROF 14(COMP METB)on 020 Albumin [Mass/Vol] 4.4 g/dL Normal 3.5-5.0 [facility] Comment on above: Performed By: #### C RP, LIPA, CMP #### [facility] [address] [place] [address] Gagemoncho Lainez Albumin/Globulin [Mass ratio] 1.3 {ratio} Normal [facility] Comment on above: Performed By: #### C RP, LIPA, CMP #### [facility] [address] [id number] Gage Fatou ALP [Catalytic activity/Vol] 76 U/L Normal 38-126 [facility] Comment on above: Performed By: #### C RP, LIPA, CMP #### [facility] [address] [id number] Gage Fatou ALT [Catalytic activity/Vol] 25 U/L Normal 21-72 [facility] Comment on above: Performed By: #### C RP, LIPA, CMP #### [facility] [address] [id number] Gage Fatou Anion gap [Moles/Vol] 10.9 mmol/L Normal Th e [facility] Comment on above: Performed By: #### C RP, LIPA, CMP #### [facility] [address] [address] Gage Fatou AST [Catalytic activity/Vol] 15 U/L Critically low 17-59 [facility] Comment on above: Performed By: #### C RP, LIPA, CMP #### [facility] [address] [address] Gage Fatou Bilirubin Ql (U) 0.5 mg/dL Normal 0.2-1.3 [facility] Comment on above: Performed By: #### C RP, LIPA, CMP #### [facility] [address] [address] Gage Fatou Calcium [Mass/Vol] 9.2 mg/dL Normal 8.4-10.2 [facility] Comment on above: Performed By: #### C RP, LIPA, CMP #### [facility] [address] [address] Gage Fatou Chloride [Moles/Vol] 103 mmol/L Normal 98-107 [facility] Comment on above: Performed By: #### C RP, LIPA, CMP #### [facility] [address] [id number] Gage Fatou CO2 [Moles/Vol] 31.1 mmol/L Critically high 22.0-30.0 [facility] Comment on above: Performed By: #### C RP, LIPA, CMP #### [facility] [address] [place] [address] Gage Fatou Creatinine [Mass/Vol] 0.90 mg/dL Normal 0.66-1.25 [facility] Comment on above: Performed By: #### C RP, LIPA, CMP #### [facility] [address] [place] [address] Gage Fatou EGFR-AF SAUDI ARABIAN >60 Normal >=60 [facility] Comment on above: Performed By: #### C RP, LIPA, CMP #### [facility] [address] [place] [address] Gage Fatou EGFR-NON AF SAUDI ARABIAN >60 Normal >=60 [facility] Comment on above: Performed By: #### C RP, LIPA, CMP #### [facility] [address] [place] [address] Gage Fatou Globulin (S) [Mass/Vol] 3.4 g/dL Normal [facility] Comment on above: Performed By: #### C RP, LIPA, CMP #### [facility] [address] [place] [address] Gage Fatou Glucose [Mass/Vol] 91 mg/dL Normal 74-106 [facility] Comment on above: Performed By: #### C RP, LIPA, CMP #### [facility] [address] [place] [address] Gage Fatou Potassium [Moles/Vol] 4.0 mmol/L Normal 3.4-5.0 [facility] Comment on above: Performed By: #### C RP, LIPA, CMP #### [facility] [address] [place] [address] Gage Fatou Protein [Mass/Vol] 7.8 g/dL Normal 6.1-8.2 [facility] Comment on above: Performed By: #### C RP, LIPA, CMP #### [facility] [address] [place] [address] Gage Fatou Sodium [Moles/Vol] 141 mmol/L Normal 137-145 [facility] Comment on above: Performed By: #### C DEXTER BRITTON, CMP #### [facility] [address] [place] [address] Gage Fatou Urea nitrogen [Mass/Vol] 14.0 mg/dL Normal 9.0-20.0 [facility] Comment on above: Performed By: #### C DEXTER BRITTON, CMP #### [facility] [address] [place] [address] Gage Fatou Urea nitrogen/Creatinine [Mass ratio] 15.6 mg/mg Normal [facility] Comment on above: Performed By: #### C DEXTER BRITTON, CMP #### [facility] [address] [place] [address] Gage Fatou AMYLASEon 06-26-2019 Amylase [Catalytic activity/Vol] 73 U/L Normal 31-110 [facility] Comment on above: Performed By: #### C DEXTER BRITTON, CMP #### [facility] [address] [place] [address] Gage Fatou BILIRUBIN CONJUGATED (DIRECT )on 06-26-2019 BILI, CONJUGATED 0.2 mg/dL Normal 0.0-0.3 [facility] Comment on above: Performed By: #### C DEXTER BRITTON, CMP #### [facility] [address] [place] [address] Gage Fatou CBC AUTO DIFFon 06-26-2019 Basophils (Bld) [#/Vol] 0.1 103/ul Normal 0.0-0.1 [facility] Comment on above: Performed By: #### S EDR #### [facility] [address] [place], [place] [id number] Gage Fatou Basophils/100 WBC (Bld) 1.1 % Normal 0.2-2.0 [facility] Comment on above: Performed By: #### S EDR #### [facility] [address] [place] [address] Gage Fatou Eosinophils (Bld) [#/Vol] 0.2 103/ul Normal 0.0-0.7 [facility] Comment on above: Performed By: #### S EDR #### [facility] [address] [place], [place] [id number] Gage Fatou Eosinophils/100 WBC (Bld) 2.7 % Normal 0.9-7.0 [facility] Comment on above: Performed By: #### S EDR #### [facility] [address] [place], [place] [id number] Gage Fatou Erythrocyte distribution width (RBC) [Ratio] 12.1 % Normal 11.0-15.0 [facility] Comment on above: Performed By: #### S EDR #### [facility] [address] [place], [place] [id number] Gage Fatou Hematocrit (Bld) [Volume fraction] 45.3 % Normal 42.0-54.0 [facility] Comment on above: Performed By: #### S EDR #### [facility] [address] [place], [place] [id number] Gage Fatou Hemoglobin (Bld) [Mass/Vol] 15.2 g/dL Normal 14.0-18.0 [facility] Comment on above: Performed By: #### S EDR #### [facility] [address] [place], [place] [address] Gage Fatou IG # 0.02 10e3/ul Normal 0.00-0.03 [facility] Comment on above: Performed By: #### S EDR #### [facility] [address] [place], [place] [id number] Gage Fatou IG % 0.3 % Normal 0.0-0.5 [facility] Comment on above: Performed By: #### S EDR #### [facility] [address] [place], [place] [id number] Gage Fatou Lymphocytes (Bld) [#/Vol] 1.4 103/ul Normal 1.2-3.8 [facility] Comment on above: Performed By: #### S EDR #### [facility] [address] [place], [place] [id number] Gage Fatou Lymphocytes/100 WBC (Bld) 22.0 % Normal 20.5-60.0 [facility] Comment on above: Performed By: #### S EDR #### [facility] [address] [place], [place] [address] Gage Fatou MANUAL DIFF REQ NO Normal [facility] Comment on above: Performed By: #### S EDR #### [facility] [address] [place], [place] [address] Gage Fatou MCH (RBC) [Entitic mass] 29.0 pg Normal 25.9-34.0 [facility] Comment on above: Performed By: #### S EDR #### [facility] [address] [place], [place] [id number] Gagemoncho Lainez MCHC (RBC) [Mass/Vol] 33.6 g/dL Normal 29.9-35.2 [facility] Comment on above: Performed By: #### S EDR #### [facility] [address] [place], [place] [id number] Gage Fatou MCV (RBC) [Entitic vol] 86.3 fL Normal 80.0-94.0 [facility] Comment on above: Performed By: #### S EDR #### [facility] [address] [place], [place] [id number] Gage Fatou Monocytes (Bld) [#/Vol] 0.5 103/ul Normal 0.3-0.8 [facility] Comment on above: Performed By: #### S EDR #### [facility] [address] [place], [place] [id number] Gage Fatou Monocytes/100 WBC (Bld) 7.9 % Normal 1.7-12.0 [facility] Comment on above: Performed By: #### S EDR #### [facility] [address] [place], [place] [address] Gage Fatou Neutrophils (Bld) [#/Vol] 4.2 103/ul Normal 1.4-6.5 [facility] Comment on above: Performed By: #### S EDR #### [facility] [address] [place], [place] [address] Gage Fatou Neutrophils/100 WBC (Bld) 66.0 % Normal 43.0-75.0 [facility] Comment on above: Performed By: #### S EDR #### [facility] [address] [place], [place] [id number] Gage Lainez Platelet mean volume (Bld) [Entitic vol] 10.1 fL Normal 9.5-13.5 [facility] Comment on above: Performed By: #### S EDR #### [facility] [address] [place], [place] [address] Gage Lainez Platelets (Bld) [#/Vol] 194 103/ul Normal 150-450 [facility] Comment on above: Performed By: #### S EDR #### [facility] [address] [place], [place] [address] Gage Lainez RBC (Bld) [#/Vol] 5.25 106/ul Normal 4.70-6.10 [facility] Comment on above: Performed By: #### S EDR #### [facility] [address] [place], [place] [address] Gage Lainez WBC (Bld) [#/Vol] 6.3 103/ul Normal 4.0-11.0 [facility] Comment on above: Performed By: #### S EDR #### [facility] [address] [place], [place] [id number] Gage Lainez LIPASEon 06-26-2019 Lipase [Catalytic activity/Vol] 153.0 U/L Normal 23.0-300.0 [facility] Comment on above: Performed By: #### C RP, LIPA, CMP #### [facility] [address] [place], [place] [id number] Gage Fernandezen PROF 14(COMP METB)on 019 Albumin [Mass/Vol] 4.5 g/dL Normal 3.5-5.0 [facility] Comment on above: Performed By: #### C RP, LIPA, CMP #### [facility] [address] [place], [place] [id number] Gage Lainez Albumin/Globulin [Mass ratio] 1.1 {ratio} Normal [facility] Comment on above: Performed By: #### C RP, LIPA, CMP #### [facility] [address] [place], [place] [address] Gage Fatou ALP [Catalytic activity/Vol] 73 U/L Normal 38-126 [facility] Comment on above: Performed By: #### C RP, LIPA, CMP #### [facility] [address] [address] Gage Fatou ALT [Catalytic activity/Vol] 29 U/L Normal 21-72 [facility] Comment on above: Performed By: #### C RP, LIPA, CMP #### [facility] [address] [address] Gage Fatou Anion gap [Moles/Vol] 11.8 mmol/L Normal Th e [facility] Comment on above: Performed By: #### C RP, LIPA, CMP #### [facility] [address] [place] [address] Gage Fatou AST [Catalytic activity/Vol] 19 U/L Normal 17-59 [facility] Comment on above: Performed By: #### C RP, LIPA, CMP #### [facility] [address] [address] Gage Fatou Bilirubin Ql (U) 0.8 mg/dL Normal 0.2-1.3 [facility] Comment on above: Performed By: #### C RP, LIPA, CMP #### [facility] [address] [place], [place] [id number] Gage Fatou Calcium [Mass/Vol] 9.4 mg/dL Normal 8.4-10.2 [facility] Comment on above: Performed By: #### C RP, LIPA, CMP #### [facility] [address] [address] Gage Fatou Chloride [Moles/Vol] 102 mmol/L Normal 98-107 [facility] Comment on above: Performed By: #### C RP, LIPA, CMP #### [facility] [address] [id number] Gage Fatou CO2 [Moles/Vol] 31.2 mmol/L Critically high 22.0-30.0 [facility] Comment on above: Performed By: #### C RP, LIPA, CMP #### [facility] [address] [place], [place] [address] Gage Fatou Creatinine [Mass/Vol] 0.94 mg/dL Normal 0.66-1.25 [facility] Comment on above: Performed By: #### C RP, LIPA, CMP #### [facility] [address] [place], [place] [address] Gage Fatou EGFR-AF SAUDI ARABIAN >60 Normal >=60 [facility] Comment on above: Performed By: #### C RP, LIPA, CMP #### [facility] [address] [phone] Gage Fatou EGFR-NON AF SAUDI ARABIAN >60 Normal >=60 [facility] Comment on above: Performed By: #### C RP, LIPA, CMP #### [facility] [address] [phone] Gage Fatou Globulin (S) [Mass/Vol] 4.0 g/dL Normal [facility] Comment on above: Performed By: #### C RP, LIPA, CMP #### [facility] [address] [phone] Gage Fatou Glucose [Mass/Vol] 113 mg/dL Critically high 74-106 [facility] Comment on above: Performed By: #### C RP, LIPA, CMP #### [facility] [address] [phone] Gage Fatou Potassium [Moles/Vol] 4.0 mmol/L Normal 3.4-5.0 [facility] Comment on above: Performed By: #### C RP, LIPA, CMP #### [facility] [address] [phone] Gage Fatou Protein [Mass/Vol] 8.5 g/dL Critically high 6.1-8.2 [facility] Comment on above: Performed By: #### C RP, LIPA, CMP #### [facility] [address] [phone] Gage Fatou Sodium [Moles/Vol] 141 mmol/L Normal 137-145 [facility] Comment on above: Performed By: #### C RP, LIPA, CMP #### [facility] [address] [address] Gage Lainez Urea nitrogen [Mass/Vol] 18.0 mg/dL Normal 9.0-20.0 [facility] Comment on above: Performed By: #### C RP, LIPA, CMP #### [facility] [address] [address] Gage Lainez Urea nitrogen/Creatinine [Mass ratio] 19.1 mg/mg Normal [facility] Comment on above: Performed By: #### C RP, LIPA, CMP #### [facility] [address] [place], [place] [id number] Gage Lainez XR ABD FLAT/UPon 06-25-2019 XR ABD FLAT/UP Patient: ARTUR PHAM Exam Date: 06/25/2019 : 1975 Gender:M Ordering : [facility] Admission #: [id number] Family : [place] Order #: [id number] CLICK HERE TO VIEW EXAM RADIOLOGY REPORT PROCEDURE: RADIOGRAPH ABDOMEN FLAT AND UPRIGHT COMPARISON: XR ABD FLAT UP/PA CH, 05/01/2019. INDICATIONS: Acute pancreatitis. Acute epigastric pain radiating to left upper quadrant for 2 months FINDINGS: BOWEL GAS PATTERN: Non-obstructed. FREE AIR: None. CALCIFICATIONS: None significant. BONES: No fracture or visible bone lesion. OTHER: Negative. CONCLUSION: 1. Nonobstructive bowel gas pattern Dictated by: Barbara Gutierrez M.D. on 06/25/2019 at 15:40 Approved by: Barbara Gutierrez M.D. on 06/25/2019 at 15:41 Normal [facility] AMYLASEon 05-02-2019 Amylase [Catalytic activity/Vol] 96 U/L Normal 31-110 [facility] Comment on above: Performed By: #### S EDR #### [facility] [address] [place] [address] Gage Lainez CBC AUTO DIFFon 05-02-2019 Basophils (Bld) [#/Vol] 0.0 103/ul Normal 0.0-0.1 [facility] Comment on above: Performed By: #### S EDR #### [facility] [address] [place], [place] [address] Gage Fatou Basophils/100 WBC (Bld) 0.3 % Normal 0.2-2.0 [facility] Comment on above: Performed By: #### S EDR #### [facility] [address] [place], [place] [id number] Gage Fatou Eosinophils (Bld) [#/Vol] 0.1 103/ul Normal 0.0-0.7 [facility] Comment on above: Performed By: #### S EDR #### [facility] [address] [place], [place] [id number] Gage Fatou Eosinophils/100 WBC (Bld) 3.3 % Normal 0.9-7.0 [facility] Comment on above: Performed By: #### S EDR #### [facility] [address] [place], [place] [id number] Gage Fatou Erythrocyte distribution width (RBC) [Ratio] 12.7 % Normal 11.0-15.0 [facility] Comment on above: Performed By: #### S EDR #### [facility] [address] [place], [place] [address] Gage Fatou Hematocrit (Bld) [Volume fraction] 42.0 % Normal 42.0-54.0 [facility] Comment on above: Performed By: #### S EDR #### [facility] [address] [place], [place] [id number] Gage Fatou Hemoglobin (Bld) [Mass/Vol] 14.4 g/dL Normal 14.0-18.0 [facility] Comment on above: Performed By: #### S EDR #### [facility] [address] [place], [place] [address] Gage Fatou IG # 0.01 10e3/ul Normal 0.00-0.03 [facility] Comment on above: Performed By: #### S EDR #### [facility] [address] [place], [place] [address] Gage Fatou IG % 0.3 % Normal 0.0-0.5 [facility] Comment on above: Performed By: #### S EDR #### [facility] [address] [place], [place] [address] Gage Fatou Lymphocytes (Bld) [#/Vol] 1.3 103/ul Normal 1.2-3.8 [facility] Comment on above: Performed By: #### S EDR #### [facility] [address] [id number] Gage Fatou Lymphocytes/100 WBC (Bld) 36.7 % Normal 20.5-60.0 [facility] Comment on above: Performed By: #### S EDR #### [facility] [address] [place], [place] [id number] Gage Fatou MANUAL DIFF REQ NO Normal [facility] Comment on above: Performed By: #### S EDR #### [facility] [address] [place], [place] [address] Gage Fatou MCH (RBC) [Entitic mass] 29.8 pg Normal 25.9-34.0 [facility] Comment on above: Performed By: #### S EDR #### [facility] [address] [place], [place] [address] Gage Fatou MCHC (RBC) [Mass/Vol] 34.3 g/dL Normal 29.9-35.2 [facility] Comment on above: Performed By: #### S EDR #### [facility] [address] [place], [place] [address] Gage Fatou MCV (RBC) [Entitic vol] 86.8 fL Normal 80.0-94.0 [facility] Comment on above: Performed By: #### S EDR #### [facility] [address] [place], [place] [address] Gage Fatou Monocytes (Bld) [#/Vol] 0.6 103/ul Normal 0.3-0.8 [facility] Comment on above: Performed By: #### S EDR #### [facility] [address] [id number] Gage Fatou Monocytes/100 WBC (Bld) 15.9 % Critically high 1.7-12.0 [facility] Comment on above: Performed By: #### S EDR #### [facility] [address] [place] [address] Gage Lainez Neutrophils (Bld) [#/Vol] 1.6 103/ul Normal 1.4-6.5 [facility] Comment on above: Performed By: #### S EDR #### [facility] [address] [place], [place] [id number] Gage Lainez Neutrophils/100 WBC (Bld) 43.5 % Normal 43.0-75.0 [facility] Comment on above: Performed By: #### S EDR #### [facility] [address] [place] [address] Gage Lainez Platelet mean volume (Bld) [Entitic vol] 10.2 fL Normal 9.5-13.5 [facility] Comment on above: Performed By: #### S EDR #### [facility] [address] [place] [address] Gage Lainez Platelets (Bld) [#/Vol] 181 103/ul Normal 150-450 [facility] Comment on above: Performed By: #### S EDR #### [facility] [address] [place] [address] Gage Lainez RBC (Bld) [#/Vol] 4.84 106/ul Normal 4.70-6.10 [facility] Comment on above: Performed By: #### S EDR #### [facility] [address] [place] [address] Gage Lainez WBC (Bld) [#/Vol] 3.7 103/ul Critically low 4.0-11.0 [facility] Comment on above: Performed By: #### S EDR #### [facility] [address] [place], [place] [id number] Gage Lainez GLYCOHEMOGLOBIN A1Con 2018 Glucose [Mass/Vol] 111 mg/dL Normal [facility] Comment on above: Performed By: #### S EDR #### [facility] [address] [place] [address] Gagemoncho Lainez HbA1c (Bld) [Mass fraction] 5.5 % Normal <=6.0 [facility] Comment on above: Performed By: #### S EDR #### [facility] [address] [place], [place] [id number] Gage Lainez LIPASEon 05-02-2019 Lipase [Catalytic activity/Vol] 197.0 U/L Normal 23.0-300.0 [facility] Comment on above: Performed By: #### S EDR #### [facility] [address] [place] [address] Gage Lainez LIPID PROFILEon 05-02-2019 CHOL-HDL RATIO NORM SEE BELOW Normal [facility] Comment on above: Result Comment: 3.3 - 4.4 LOW RISK 4.4 - 7.1 AVERAGE RISK 7.1 - 11.0 MODERATE RISK >11.0 HIGH RISK Performed By: #### S EDR #### [facility] [address] [place] [address] Gage Fatou Cholesterol [Mass/Vol] 195 mg/dL Normal <=200 [facility] Comment on above: Performed By: #### S EDR #### [facility] [address] [place], [place] [id number] Gage Fatou Cholesterol in HDL [Mass/Vol] > or = 60 mg/dl - LOW CARDIOVASCULAR RISK <40 mg/dl - HIGH CARDIOVASCULAR RISK Normal [facility] Comment on above: Performed By: #### S EDR #### [facility] [address] [place], [place] [id number] Gage Fatou Cholesterol in HDL [Mass/Vol] 63 mg/dL Normal [facility] Comment on above: Performed By: #### S EDR #### [facility] [address] [place], [place] [id number] Gage Fatou Cholesterol in LDL [Mass/Vol] SEE BELOW Normal [facility] Comment on above: Result Comment: <100 mg/dl OPTIMAL 100 - 129 mg/dl NEAR OR ABOVE OPTIMAL 130 - 159 mg/dl BORDERLINE HIGH 160 - 189 mg/dl HIGH >190 mg/dl VERY HIGH Performed By: #### S EDR #### [facility] [address] [address] Gagemoncho Lainez Cholesterol in LDL [Mass/Vol] 122.8 mg/dL Normal [facility] Comment on above: Performed By: #### S EDR #### [facility] [address] [place] [address] Gage Fatou Cholesterol.total/Cho lesterol in HDL [Mass ratio] 3.1 {ratio} Normal [facility] Comment on above: Performed By: #### S EDR #### [facility] [address] [place] [address] Gage Fatou Triglyceride [Mass/Vol] 46 mg/dL Normal <=150 [facility] Comment on above: Performed By: #### S EDR #### [facility] [address] [place] [address] Gage Fatou VLDL CALC 9.2 mg/dL Normal [facility] Comment on above: Performed By: #### S EDR #### [facility] [address] [place] [address] Gage Fatou PROCALCITONINon 05-02-2019 PCT header 1 SEE BELOW Normal [facility] Comment on above: Result Comment: PCT <0.5ng/mL: Systemic infection (sepsis) is not likely, local bacterial infection possible, low risk for progression to severe systemic infection (severe sepsis) Performed By: #### S EDR #### [facility] [address] [place] [address] Gage Fatou PCT header 2 SEE BELOW Normal [facility] Comment on above: Result Comment: PCT >/=0.5 and <2 ng/mL: Systemic infection (sepsis) is possible, moderate risk for progression to severe systemic infection (severe sepsis) Performed By: #### S EDR #### [facility] [address] [place] [address] Gage Fatou PCT header 3 SEE BELOW Normal [facility] Comment on above: Result Comment: PCT >/=2.0 and <10 ng/mL: Systemic infection (sepsis) is likely, unless other causes are known, high risk for progession to severe systemic infection(severe sepsis) Performed By: #### S EDR #### [facility] [address] [place], [place] [id number] Gage Lainez PCT header 4 SEE BELOW Normal [facility] Comment on above: Result Comment: PCT >/= 10 ng/mL: Important systemic inflammatory response almost exclusively due to severe bacterial sepsis or septic shock, high likelihood of severe sepsis or septic shock Performed By: #### S EDR #### [facility] [address] [place], [place] [id number] Gage Lainez PROCALCITONIN 0.06 ng/mL Normal 0.00-0.50 [facility] Comment on above: Performed By: #### S EDR #### [facility] [address] [place], [place] [id number] Gage Lainez PROF 14(COMP METB)on 019 Albumin [Mass/Vol] 3.1 g/dL Critically low 3.5-5.0 [facility] Comment on above: Performed By: #### S EDR #### [facility] [address] [place], [place] [id number] Gage Lainez Albumin/Globulin [Mass ratio] 1.0 {ratio} Normal [facility] Comment on above: Performed By: #### S EDR #### [facility] [address] [place], [place] [id number] Gaeg Lainez ALP [Catalytic activity/Vol] 60 U/L Normal 38-126 [facility] Comment on above: Performed By: #### S EDR #### [facility] [address] [place], [place] [id number] Gage Lainez ALT [Catalytic activity/Vol] 29 U/L Normal 21-72 [facility] Comment on above: Performed By: #### S EDR #### [facility] [address] [place], [place] [id number] Gage Lainez Anion gap [Moles/Vol] 11.7 mmol/L Normal [facility] Comment on above: Performed By: #### S EDR #### [facility] [address] [place], [place] [id number] Gage Lainez AST [Catalytic activity/Vol] 14 U/L Critically low 17-59 [facility] Comment on above: Performed By: #### S EDR #### [facility] [address] [id number] Gage Fatou Bilirubin Ql (U) 0.6 mg/dL Normal 0.2-1.3 [facility] Comment on above: Performed By: #### S EDR #### [facility] [address] [address] Gage Fatou Calcium [Mass/Vol] 8.0 mg/dL Critically low 8.4-10.2 [facility] Comment on above: Performed By: #### S EDR #### [facility] [address] [address] Gage Fatou Chloride [Moles/Vol] 105 mmol/L Normal 98-107 [facility] Comment on above: Performed By: #### S EDR #### [facility] [address] [place] [address] Gage Fatou CO2 [Moles/Vol] 24.0 mmol/L Normal 22.0-30.0 [facility] Comment on above: Performed By: #### S EDR #### [facility] [address] [id number] Gage Fatou Creatinine [Mass/Vol] 0.90 mg/dL Normal 0.66-1.25 [facility] Comment on above: Performed By: #### S EDR #### [facility] [address] [id number] Gage Fatou EGFR-AF SAUDI ARABIAN >60 Normal >=60 [facility] Comment on above: Performed By: #### S EDR #### [facility] [address] [id number] Gage Fatou EGFR-NON AF SAUDI ARABIAN >60 Normal >=60 [facility] Comment on above: Performed By: #### S EDR #### [facility] [address] [place], [place] [id number] Gage Fatou Globulin (S) [Mass/Vol] 3.2 g/dL Normal [facility] Comment on above: Performed By: #### S EDR #### [facility] [address] [address] Gage Fatou Glucose [Mass/Vol] 107 mg/dL Critically high 74-106 [facility] Comment on above: Performed By: #### S EDR #### [facility] [address] [id number] Gage Fatou Potassium [Moles/Vol] 3.7 mmol/L Normal 3.4-5.0 [facility] Comment on above: Performed By: #### S EDR #### [facility] [address] [id number] Gage Fatou Protein [Mass/Vol] 6.3 g/dL Normal 6.1-8.2 [facility] Comment on above: Performed By: #### S EDR #### [facility] [address] [id number] Gage Fatou Sodium [Moles/Vol] 137 mmol/L Normal 137-145 [facility] Comment on above: Performed By: #### S EDR #### [facility] [address] [id number] Gage Fatou Urea nitrogen [Mass/Vol] 8.0 mg/dL Critically low 9.0-20.0 [facility] Comment on above: Performed By: #### S EDR #### [facility] [address] [id number] Gage Fatou Urea nitrogen/Creatinine [Mass ratio] 8.9 mg/mg Normal [facility] Comment on above: Performed By: #### S EDR #### [facility] [address] [id number] Gage Fatou US SINGLE QUAD RT UPPERon US SINGLE QUAD RT UPPER Patient: ARTUR PHAM Exam Date: 05/02/2019 : 1975 Gender:M Ordering : DR CARMEN SALAZAR . Admission #: [id number] Family : DR BARBARA GUTIERREZ M.D. Order #: [id number] CLICK HERE TO VIEW EXAM RADIOLOGY REPORT PROCEDURE: ULTRASOUND SINGLE QUADRANT RIGHT UPPER COMPARISON: None. INDICATIONS: Headache; Acute epigastric pain and nausea TECHNIQUE: Sonographic evaluation of the right upper quadrant of the abdomen was performed. FINDINGS: LIVER: Normal size and echotexture. PORTAL VEIN: Duplex Doppler demonstrates normal hepatopetal flow pattern with flow velocity averaging 28 cm/s. GALLBLADDER: No visible gallstones, wall thickening, or pericholecystic fluid. Negative sonographic Munroe's sign. BILIARY: No abnormal dilatation or stones. Maximum common bile duct diameter: 3.8 mm. PANCREAS: Normal. No visible mass, abnormal atrophy, or ductal dilatation. RIGHT KIDNEY: No solid mass, calculus or obstruction. Length: 11.5 CONCLUSION: Normal examination. Dictated by: Barbara Gutierrez M.D. on 05/02/2019 at 09:49 Approved by: Barbara Gutierrez M.D. on 05/02/2019 at 09:50 Normal [facility] AMYLASEon 05-01-2019 Amylase [Catalytic activity/Vol] 244 U/L Critically high 31-110 [facility] Comment on above: Performed By: #### A MY #### [facility] [address] [place], [place] [id number] Gage Fatou CBC AUTO DIFFon 05-01-2019 Basophils (Bld) [#/Vol] 0.0 103/ul Normal 0.0-0.1 [facility] Comment on above: Performed By: #### C BC #### [facility] [address] [place], [place] [id number] Gage Fatou Basophils/100 WBC (Bld) 0.5 % Normal 0.2-2.0 [facility] Comment on above: Performed By: #### C BC #### [facility] [address] [place], [place] [id number] Gage Fatou Eosinophils (Bld) [#/Vol] 0.1 103/ul Normal 0.0-0.7 [facility] Comment on above: Performed By: #### C BC #### [facility] [address] [place], [place] [id number] Gage Fatou Eosinophils/100 WBC (Bld) 1.3 % Normal 0.9-7.0 [facility] Comment on above: Performed By: #### C BC #### [facility] [address] [place], [place] [id number] Gage Fatou Erythrocyte distribution width (RBC) [Ratio] 12.6 % Normal 11.0-15.0 [facility] Comment on above: Performed By: #### C BC #### [facility] [address] [place] [address] Gage Lainez Hematocrit (Bld) [Volume fraction] 47.2 % Normal 42.0-54.0 [facility] Comment on above: Performed By: #### C BC #### [facility] [address] [place] [address] Gage Lainez Hemoglobin (Bld) [Mass/Vol] 16.0 g/dL Normal 14.0-18.0 [facility] Comment on above: Performed By: #### C BC #### [facility] [address] [place] [address] Gagemoncho Lainez IG # 0.03 10e3/ul Normal 0.00-0.03 [facility] Comment on above: Performed By: #### C BC #### [facility] [address] [place] [address] Gage Lainez IG % 0.5 % Normal 0.0-0.5 [facility] Comment on above: Performed By: #### C BC #### [facility] [address] [place] [address] Gage Lainez Lymphocytes (Bld) [#/Vol] 0.8 103/ul Critically low 1.2-3.8 [facility] Comment on above: Performed By: #### C BC #### [facility] [address] [place] [address] Gage Lainez Lymphocytes/100 WBC (Bld) 12.2 % Critically low 20.5-60.0 [facility] Comment on above: Performed By: #### C BC #### [facility] [address] [place] [address] Gage Lainez MANUAL DIFF REQ NO Normal [facility] Comment on above: Performed By: #### C BC #### [facility] [address] [place] [address] Gage Lainez MCH (RBC) [Entitic mass] 29.2 pg Normal 25.9-34.0 [facility] Comment on above: Performed By: #### C BC #### [facility] [address] [place], [place] [id number] Gage Fatou MCHC (RBC) [Mass/Vol] 33.9 g/dL Normal 29.9-35.2 [facility] Comment on above: Performed By: #### C BC #### [facility] [address] [place], [place] [id number] Gage Fatou MCV (RBC) [Entitic vol] 86.1 fL Normal 80.0-94.0 [facility] Comment on above: Performed By: #### C BC #### [facility] [address] [place], [place] [id number] Gage Fatou Monocytes (Bld) [#/Vol] 0.6 103/ul Normal 0.3-0.8 [facility] Comment on above: Performed By: #### C BC #### [facility] [address] [place], [place] [address] Gage Fatou Monocytes/100 WBC (Bld) 8.8 % Normal 1.7-12.0 [facility] Comment on above: Performed By: #### C BC #### [facility] [address] [place], [place] [address] Gage Fatou Neutrophils (Bld) [#/Vol] 4.8 103/ul Normal 1.4-6.5 [facility] Comment on above: Performed By: #### C BC #### [facility] [address] [place], [place] [id number] Gage Fatou Neutrophils/100 WBC (Bld) 76.7 % Critically high 43.0-75.0 [facility] Comment on above: Performed By: #### C BC #### [facility] [address] [place], [place] [id number] Gage Fatou Platelet mean volume (Bld) [Entitic vol] 10.0 fL Normal 9.5-13.5 [facility] Comment on above: Performed By: #### C BC #### [facility] [address] [place], [place] [id number] Gage Fatou Platelets (Bld) [#/Vol] 198 103/ul Normal 150-450 [facility] Comment on above: Performed By: #### C BC #### [facility] [address] [id number] Gage Lainez RBC (Bld) [#/Vol] 5.48 106/ul Normal 4.70-6.10 [facility] Comment on above: Performed By: #### C BC #### [facility] [address] [address] Gage Lainez WBC (Bld) [#/Vol] 6.2 103/ul Normal 4.0-11.0 [facility] Comment on above: Performed By: #### C BC #### [facility] [address] [place] [address] Gage Lainez CRPon 05-01-2019 CRP [Mass/Vol] 2.4 mg/dL Critically high <=1.0 [facility] Comment on above: Performed By: #### C RP, LIPA, CMP #### [facility] [address] [place], [place] [id number] Gage Lainez CT ABD/PELVIS W CONon 2018 CT ABD/PELVIS W CON Patient: ARTUR PHAM Exam Date: 05/01/2019 : 1975 Gender:M Ordering : TAPAN GARDNER Admission #: [id number] Family : DR PITO NARAYANAN D.O. Order #: [id number] CLICK HERE TO VIEW EXAM RADIOLOGY REPORT PROCEDURE: CT ABDOMEN AND PELVIS WITH CONTRAST COMPARISON: None. INDICATIONS: Acute right and left upper quadrant pain mainly over epigastric region, nausea TECHNIQUE: CT images were created with IV contrast. Axial, Coronal, and Sagittal images. DOSE: 100 cc Omnipaque 300; 1076 mGycm FINDINGS: LUNG BASES: No visible pulmonary or pleural disease. LIVER: No enlargement, atrophy, abnormal density, or significant focal lesion. BILIARY: No visible dilatation or calcification. PANCREAS: No lesion, fluid collection, ductal dilatation, or atrophy. SPLEEN: No enlargement or focal lesion. ADRENALS: No mass or enlargement. KIDNEYS: No mass, obstruction, or calcification. BOWEL/MESENTERY: No visible mass, obstruction, or bowel wall thickening. Normal appendix AORTA/VASCULAR: No aneurysm or dissection. RETROPERITONEUM: No mass or adenopathy. LYMPH NODES: No adenopathy. URINARY BLADDER: No visible focal wall thickening, lesion, or calculus. PELVIC ORGANS: No visible mass. Pelvic organs appropriate for patient age. ABDOMINAL WALL: No mass or hernia. BONES: No bony lesion or fracture. CONCLUSION: 1. No acute intraperitoneal abnormality Dictated by: Barbara Gutierrez M.D. on 05/01/2019 at 17:06 Approved by: Barbara Gutierrez M.D. on 05/01/2019 at 17:10 Normal [facility] CT HEAD WO CONon 05-01-2019 CT HEAD WO CON Patient: ARTUR PHAM Exam Date: 05/01/2019 : 1975 Gender:M Ordering : TAPAN GARDNER Admission #: [id number] Family : DR PITO NARAYANAN D.O. Order #: [id number] CLICK HERE TO VIEW EXAM RADIOLOGY REPORT PROCEDURE: CT HEAD WITHOUT CONTRAST COMPARISON: None. INDICATIONS: Acute frontal headache, nausea TECHNIQUE: Axial CT images were obtained without IV contrast. DOSE: 1238mGycm FINDINGS: BRAIN: No edema, hemorrhage, mass, acute infarction, or inappropriate atrophy. 8 mm round area within the right basal ganglia which follows CSF signal, suspected represent a prominent perivascular space or extension of fluid from the suprasellar cistern; sequela of remote lacune infarction is less likely. CSF SPACES: No hydrocephalus, subarachnoid hemorrhage, or mass. Appropriate for age. SKULL: No fracture, mass, or other significant visible lesion. SINUSES: Mucosal thickening within the ethmoid air cells. No developed frontal sinuses. ORBITS: No appreciable abnormality on the limited views. OTHER: Negative CONCLUSION: 1. No acute or suspicious abnormality of the brain. 2. Chronic sinusitis. Dictated by: Brodie Ayala M.D. on 05/01/2019 at 15:03 Approved by: Brodie Ayala M.D. on 05/01/2019 at 15:08 Normal [facility] LIPASEon 05-01-2019 Lipase [Catalytic activity/Vol] 1422.0 U/L Critically high 23.0-300.0 [facility] Comment on above: Result Comment: test repeated critical value verified Performed By: #### C RP, LIPA, CMP #### [facility] [address] [place] [address] Gagemoncho Lainez PROCALCITONINon 05-01-2019 PCT header 1 SEE BELOW Normal [facility] Comment on above: Result Comment: PCT <0.5ng/mL: Systemic infection (sepsis) is not likely, local bacterial infection possible, low risk for progression to severe systemic infection (severe sepsis) Performed By: #### P RL #### [facility] [address] [place] [address] Gage Fatou PCT header 2 SEE BELOW Normal [facility] Comment on above: Result Comment: PCT >/=0.5 and <2 ng/mL: Systemic infection (sepsis) is possible, moderate risk for progression to severe systemic infection (severe sepsis) Performed By: #### P RL #### [facility] [address] [place] [address] Gage Fatou PCT header 3 SEE BELOW Normal [facility] Comment on above: Result Comment: PCT >/=2.0 and <10 ng/mL: Systemic infection (sepsis) is likely, unless other causes are known, high risk for progession to severe systemic infection(severe sepsis) Performed By: #### P RL #### [facility] [address] [place] [address] Gage Fatou PCT header 4 SEE BELOW Normal [facility] Comment on above: Result Comment: PCT >/= 10 ng/mL: Important systemic inflammatory response almost exclusively due to severe bacterial sepsis or septic shock, high likelihood of severe sepsis or septic shock Performed By: #### P RL #### [facility] [address] [place] [address] Gage Fatou PROCALCITONIN <0.05 Normal 0.00-0.50 [facility] Comment on above: Performed By: #### P RL #### [facility] [address] [place] [address] Gage Lainez PROF 14(COMP METB)on 019 Albumin [Mass/Vol] 3.9 g/dL Normal 3.5-5.0 [facility] Comment on above: Performed By: #### C RP, LIPA, CMP #### [facility] [address] [place], [place] [id number] Gage Fatou Albumin/Globulin [Mass ratio] 1.0 {ratio} Normal [facility] Comment on above: Performed By: #### C RP, LIPA, CMP #### [facility] [address] [address] Gage Fatou ALP [Catalytic activity/Vol] 83 U/L Normal 38-126 [facility] Comment on above: Performed By: #### C RP, LIPA, CMP #### [facility] [address] [place] [address] Gage Fatou ALT [Catalytic activity/Vol] 36 U/L Normal 21-72 [facility] Comment on above: Performed By: #### C RP, LIPA, CMP #### [facility] [address] [place] [address] Gage Fatou Anion gap [Moles/Vol] 14.7 mmol/L Normal [facility] Comment on above: Performed By: #### C RP, LIPA, CMP #### [facility] [address] [place] [address] Gage Fatou AST [Catalytic activity/Vol] 19 U/L Normal 17-59 [facility] Comment on above: Performed By: #### C RP, LIPA, CMP #### [facility] [address] [place] [address] Gage Fatou Bilirubin Ql (U) 0.7 mg/dL Normal 0.2-1.3 [facility] Comment on above: Performed By: #### C RP, LIPA, CMP #### [facility] [address] [place], [place] [id number] Gage Fatou Calcium [Mass/Vol] 8.6 mg/dL Normal 8.4-10.2 [facility] Comment on above: Performed By: #### C RP, LIPA, CMP #### [facility] [address] [place], [place] [id number] Gage Fatou Chloride [Moles/Vol] 103 mmol/L Normal 98-107 [facility] Comment on above: Performed By: #### C RPANNETTAA, CMP #### [facility] [address] [place] [address] Gage Fatou CO2 [Moles/Vol] 24.9 mmol/L Normal 22.0-30.0 [facility] Comment on above: Performed By: #### C RP LIPA, CMP #### [facility] [address] [place] [address] Gage Fatou Creatinine [Mass/Vol] 0.86 mg/dL Normal 0.66-1.25 [facility] Comment on above: Performed By: #### C RP LIPA, CMP #### [facility] [address] [place] [address] Gage Fatou EGFR-AF SAUDI ARABIAN >60 Normal >=60 [facility] Comment on above: Performed By: #### C RP LIPA, CMP #### [facility] [address] [place] [address] Gage Fatou EGFR-NON AF SAUDI ARABIAN >60 Normal >=60 [facility] Comment on above: Performed By: #### C RP LIPA, CMP #### [facility] [address] [place] [address] Gage Fatou Globulin (S) [Mass/Vol] 4.0 g/dL Normal [facility] Comment on above: Performed By: #### C RP LIPA, CMP #### [facility] [address] [place] [address] Gage Fatou Glucose [Mass/Vol] 113 mg/dL Critically high 74-106 T [facility] Comment on above: Performed By: #### C RP LIPA, CMP #### [facility] [address] [place] [address] Gage Fatou Potassium [Moles/Vol] 3.6 mmol/L Normal 3.4-5.0 [facility] Comment on above: Performed By: #### C RP, LIPA, CMP #### [facility] [address] [place] [address] Gage Fatou Protein [Mass/Vol] 7.9 g/dL Normal 6.1-8.2 [facility] Comment on above: Performed By: #### C DEXTER BRITTON, CMP #### [facility] [address] [address] Gage Fatou Sodium [Moles/Vol] 139 mmol/L Normal 137-145 [facility] Comment on above: Performed By: #### C RPANNETTAA, CMP #### [facility] [address] [address] Gage Fatou Urea nitrogen [Mass/Vol] 11.0 mg/dL Normal 9.0-20.0 [facility] Comment on above: Performed By: #### C DEXTER BRITTON, CMP #### [facility] [address] [place] [address] Gage Fatou Urea nitrogen/Creatinine [Mass ratio] 12.8 mg/mg Normal [facility] Comment on above: Performed By: #### C DEXTER BRITTON, CMP #### [facility] [address] [place] [address] Gage Fatou SED RATE [facility] 2018 SED RATE 17 mm/hr Critically high <=15 [facility] Comment on above: Performed By: #### S EDR #### [facility] [address] [place] [address] Gage Fatou SEDRH METHOD AND NORMAL CHANGE 08/20/15. RESULTS ARE NOT AFFECTED BY HEMATOCRIT. Normal [facility] Comment on above: Performed By: #### S EDR #### [facility] [address] [place] [address] Gage Fatou XR ABD FLAT UP/PA Cale 05-01 XR ABD FLAT UP/PA CH Patient: ARTUR PHAM Exam Date: 05/01/2019 : 1975 Gender:M Ordering : TAPAN GARDNER Admission #: [id number] Family : DR PITO NARAYANAN D.O. Order #: [id number] CLICK HERE TO VIEW EXAM RADIOLOGY REPORT PROCEDURE: RADIOGRAPH ABDOMEN FLAT/UPRIGHT AND PA CHEST COMPARISON: None. INDICATIONS: Acute right and left upper quadrant pain mainly over epigastric region, nausea FINDINGS: LUNGS: No infiltrate, pneumothorax, or pleural effusion. MEDIASTINUM: No abnormal widening. BOWEL GAS PATTERN: Non-obstructed. Small fluid levels within the ascending colon only. Moderate amount of stool throughout the colon. FREE AIR: None. CALCIFICATIONS: None significant. BONES: No fracture or visible bone lesion. OTHER: Negative. CONCLUSION: 1. No acute cardiopulmonary process. 2. No bowel obstruction. Mild enteritis or colitis cannot be completely excluded. Dictated by: Brodie Ayala M.D. on 05/01/2019 at 15:17 Approved by: Brodie Ayala M.D. on 05/01/2019 at 15:21 [facility] Encounters Encounter Date Encounter Type Care Provider Facility Start: 08-18-2024 End: 08-18-2024 ambulatory Sunny Goetz MD Facility:[facility] Start: 08-11-2024 End: 08-11-2024 ambulatory Bertha L Robin Facility:[facility] Start: 05-30-2024 End: 05-30-2024 ambulatory Bertha L Robin Facility:[facility] Start: 11-20-2023 End: 11-20-2023 ambulatory Bertha L Robin Facility:[facility] Start: 10-15-2023 End: 10-15-2023 ambulatory Bertha L Robin Facility:[facility] Start: 09-26-2023 End: 09-26-2023 Lab Drop off Bertha L Robin [facility] Start: 09-26-2023 End: 09-26-2023 ambulatory Bertha L Robin Facility:[facility] [place] [place] Start: 09-21-2023 ambulatory Bertha Robin Facility: [facility] Start: 08-19-2019 End: 08-20-2019 Patient encounter procedure MADAY LOMELIMCKINNEY Facility:[facility] Start: 06-26-2019 End: 06-27-2019 Patient encounter procedure [facility] Facility:[facility] Start: 06-25-2019 End: 06-26-2019 Patient encounter procedure [facility] Facility:[facility] Start: 05-01-2019 End: 05-02-2019 Patient encounter procedure CARMEN Ramin SALAZAR Facility:[facility] Procedures Date Procedure Procedure Detail Performing Clinician Start: 07-16-2015 Surgical procedure Berthajose Coleab Payers Date Payer Category Payer Unknown 2023 Self-pay 1975 Unknown [id number] 2.16.84 [id number] 1975 Unknown [id number] 2.16.84 [id number] 1975 Unknown [id number] 2.16.84 [id number] 1975 Unknown [id number] 2.16.84 [id number] 1975 Unknown [id number] 2.16.8 [id number] 1975 Unknown [id number] 2.16.8 [id number] 1974 Unknown [id number] 2.16.8 [id number] 1974 Unknown [id number] 2.16.8 [id number] 1974 Unknown [id number] 2.16.8 [id number] 1974 Unknown [id number] 2.16.8 [id number] 1975 Unknown [id number] 2.16. [id number] 1960 Private Health Insurance [id number] Unknown [id number] Social History Date Type Detail Facility Start: 09-26-2023 Tobacco smoking status Ex-smoker (fi nding) [facility] Universal Sex Assigned At Male [facility] Evaluation + Plan note Note Date & Type Note Facility Evaluation + Plan note No data available for this section [facility] Hospital Discharge instructions Note Date & Type Note Facility Hospital Discharge instructions No data available for this section [facility] Progress note Note Date & Type Note Facility Progress note No data available for this section [facility] Summary Purpose Family History No Family History Records Found No data available for this section No Family History Records FoundNo Family History Records Found Advance Directives No Advanced Directives Records FoundNo Advanced Directives Records FoundNo Advanced Directives Records Found Additional Source Comments (unrecognized sect ion and content) No Status Records FoundNo Status Records FoundNo Status Records Found INFORMATION SOURCE (unrecogn ized section and content) DATE CREATED AUTHOR 09/26/2019 [facility] DATE CREATED AUTHOR AUTHOR'S ORGANIZ ATION 08/13/2024 [facility] DATE CREATED AUTHOR AUTHOR'S ORGANIZ ATION 08/21/2024 [facility] Patient Care team informatio n (unrecognized section and content) Personnel Name: Bertha Shepard Address: Address: [address] [place] [address]- FOR RECORDS PERTAINING TO PATIENTS WHO ARE OR HAVE BEEN ENROLLED IN A CHEMICAL DEPENDENCY/SUBSTANCEABUSE PROGRAM, SOME INFORMATION MAY BE OMITTED. This clinical summary was aggregated from multiple sources. Caution should be exercised in using it in the provision of clinical care. This summary normalizes information from multiple sources, and as a consequence, information in this document may materially change the coding, format and clinical context of patient data. In addition, data may be omitted in some cases. CLINICAL DECISIONS SHOULD BE BASED ON THE PRIMARY CLINICAL RECORDS. [facility] [employer] [facility]. provides no warranty or guarantee of the accuracy or completeness of information in this document.
== END 2024-08-27 11:17 | disposition home or self-care (01) ==
LOC: RAD 11:20
PROVIDERS: PCP Nurse Practitioner; Visit Provider Anesthesiology
DX: M25.521 Pain in right elbow (principal); M25.522 Pain in left elbow; M79.641 Pain in right hand; M79.642 Pain in left hand
CPT/HCPCS: 73080; 73130

== ENCOUNTER 2024-09-08 13:33 | Outpatient (OUT) | payer OTHER, SELFPAY ==
--- OUTSIDE RECORDS SUMMARY | 2024-09-08 13:55 | XMS_ITS | CCD ---
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 Role Phone CARMEN SALAZAR Admitting Unavailable CARMEN SALAZAR Attending Unavailable REQUEST, NONE LISTED Primary Care Unavailable BRENDA, BARBARA Stiles Consulting Unavailable BRODIE AAYLA Consulting Unavailable CARMEN SALAZAR Consulting Unavailable KAREEM, TAPAN Consulting Unavailable [facility] Admitting Unava ilable [facility] Attending Unava ilable WESTBARBARA V Consulting Unavailable [facility] Consulting Unava ilable MISC, DOCTOR Admitting Unavailable MISC, DOCTOR Attending Unavailable MISC, DOCTOR Primary Care Unavailable MISC, DOCTOR Consulting Unavailable MADAY GUDINO Admitting Unavailable BEERAGUILAR, MADAY Attending Unavailable MISC, DOCTOR Primary Care Unavailable SHAHAB, MADAY Consulting Unavailable Robin, Bertha Barroso Primary Care Physician Bertha Mcdowell Attending Unavailable Robin, Bertha Barroso Attending Unavailable Robin, Bertha Barroso Attending Unavailable Robin, Bertha Barroso Attending Unavailable Robin, Bertha L Attending Unavailable Robin, Bertha L Admitting Unavailable Robin, Bertha L Attending Unavailable Sunny Goetz MD Attending Unavailable RobinBertha dalton MD Unavailable Unallocated , Noms Provider Primary Care Provi robert NOBLE LIMA Attending Unavailable BERTHA MCDOWELL Referring Unavailable Problems Active Problems Problem Classification Problem Date Documented Da te Episodic/Chronic Abdominal pain (5 sources) Unspecified abdominal pain; Translations: [Epigastric pain] Onset: 05-07-2019 Episodic Diabetes mellitus without complication (1 source) Prediabetes; Translations: [PREDIABETES] Onset: 05-07-2019 Other nervous system disorders (1 source) Carpal tunnel syndrome 09-26-2023 Chronic Other nervous system disorders (1 source) Bilateral carpal tunnel syndrome; Translations: [Carpal tunnel syndrome, bilateral upper limbs] 09-04-2024 Chronic Other upper respiratory infections (1 source) [...] Test Name Value Interpretation Reference Range Facility EMG 2 Extremitieson 09-04-19 Carpal tunnel syndro me bilaterally. Moderate left and severe right [facility] NVC 9-10 Nerveson 09-04-2024 Carpal tunnel syndro me bilaterally. Moderate left and severe right [facility] Family Medicine Office/Clini c Noteon 08-12-2024 Family [...] used: Right side is worse since the SARMAD. Pt has been wearing brace, gloves, heat, [...] braces. EMG re ordered through [facility] in [place]. will send referral to pain management in [place] as well. Ordered: EMG Bilateral Upper Extremity (BUE) [facility] External Ambulatory Referral 2. Carpal tunnel syndrome (G56.00: Carpal tunnel syndrome, unspecified upper limb) discussed he will eventually need surgery but he is not interested or able to have surgery at this time. will send referral to pain management for further evaluation and treatment. medrol dose pack sent in he will also continue meloxicam Ordered: EMG Bilateral Upper Extremity (BUE) [facility] External Ambulatory Referral 3. BMI 35.0-35.9,adult (Z68.35: Body mass index [BMI] 35.0-35.9, adult) BMI education given Ordered: EMG Bilateral Upper Extremity (BUE) [facility] External Ambulatory Referral 4. Non-smoker (Z78.9: Other specified health status) continue not smoking Ordered: EMG Bilateral Upper Extremity (BUE) [facility] External Ambulatory Referral Orders: methylPREDNISolone, = 1 packet(s), Oral, Once, as directed on package labeling, # 21 tab(s), Refills(s) 0, Pharmacy: [facility]/pharmacy #[id number], 176.8, cm, 05/30/24 11:38:00 EST, Height/Length Dosing, 99.3, kg, 05/30/24 11:38:00 EST, Weight Dosing methylPREDNISolone, = 1 packet(s), Oral, Once, as directed on package labeling, # 21 tab(s), Refills(s) 0, Pharmacy: [facility] #[id number], 167.8, cm, 08/11/24 15:33:00 EST, Height/Length [...] Use:. Cigarettes, Household tobacco concerns: No., 05/30/2024 [facility] Comment on above: Result Comment: Elec tronically [...] (meloxicam 15 mg Tab) Procedures Performed Surgery (2016). Discharge Vitals Heart Rate (Peripheral) 64 Respiratory [...] you for choosing us for your care. [facility] Family Medicine Office/Clini c Noteon 05-30-2024 Family [...] Daily, # 90 tab(s), Refills(s) 0, Pharmacy: [facility] #[id number], 176.8, cm, 11/20/23 16:07:00 EDT, Height/Length Dosing, 96.3, kg, 11/20/23 16:07:00 EDT, Weight Dosing meloxicam, 15 mg = 1 tab(s), Oral, Daily, # 90 tab(s), Refills(s) 0, Pharmacy: [facility]/pharmacy #[id number], 176.8, cm, 05/30/24 11:38:00 EST, Height/Length Dosing, 99.3, kg, 05/30/24 11:38:00 EST, Weight Dosing methylPREDNISolone, = 1 packet(s), Oral, Once, as directed on package labeling, # 21 tab(s), Refills(s) 0, Pharmacy: [facility] #[id number], 176.8, cm, 11/20/23 16:07:00 EDT, Height/Length Dosing, 96.3, kg, 11/20/23 16:07:00 EDT, Weight Dosing methylPREDNISolone, = 1 packet(s), Oral, Once, as directed on package labeling, # 21 tab(s), Refills(s) 0, Pharmacy: [facility]/pharmacy #[id number], 176.8, cm, 05/30/24 11:38:00 EST, [...] Use:. Cigarettes, Household tobacco concerns: No., 05/30/2024 [facility] Comment on above: Result Comment: Elec tronically Signed By: Bertha Shepard\.jacquelyn\Date and Time Signed: 05/30/24 12:22 EST Physician Orderon 11-21-2023 Physician Order [id number] TIFF Normal [facility] Ambulatory Visit Summaryon 0 11-20-2023 Ambulatory Visit Summary ANDREIAARTUR Hernandez :1975 Visit Date:11/20/2023 Ambulatory Visit Instructions Your [...] Tablets By Mouth Every day Pickup at [facility] #29064 Unchanged methylPREDNISolone (methylPREDNISolone 4 mg tab dosepak) 1 Packets By Mouth Once as directed on package labeling Pickup at [facility] #68643 Pharmacy Information [facility] #[id number]: [address], [place] [phone] Allergies No Known Allergies Problems Ongoing - [...] for choosing us for your care. Normal [facility] Family Medicine Office/Clini c Noteon [...] 90 tab(s), Refills(s) 0, Pharmacy: [facility] #[id number], 176.8, cm, 11/20/23 16:07:00 EDT, Height/Length Dosing, 96.3, kg, 11/20/23 16:07:00 EDT, Weight Dosing meloxicam, 15 mg = 1 tab(s), Oral, Daily, # 30 tab(s), Refills(s) 5, Pharmacy: [facility] #[id number], 176.8, cm, 10/15/23 10:24:00 EDT, Height/Length Dosing, 97.5, kg, 10/15/23 10:24:00 EDT, Weight Dosing methylPREDNISolone, = 1 packet(s), Oral, Once, as directed on package labeling, # 21 tab(s), Refills(s) 0, Pharmacy: [facility] #[id number], 176.8, cm, 11/20/23 16:07:00 EDT, Height/Length Dosing, 96.3, kg, 11/20/23 16:07:00 EDT, Weight Dosing methylPREDNISolone, = 1 packet(s), Oral, Once, as directed on package labeling, # 21 tab(s), Refills(s) 0, Pharmacy: [facility] #[id number], 176.8, cm, 10/15/23 10:24:00 EDT, Height/Length Dosing, [...] Use:. Cigarettes, Household tobacco concerns: No., 11/20/2023 [facility] Comment on above: Result Comment: Elec tronically Signed By: Bertha Shepard\.br\Date and Time Signed: 11/20/23 16:52 EDT Lab Reportson 11-05-2023 Lab Reports [id number] 0TIFF [facility] Ambulatory Visit Summaryon 0 10-15-2023 Ambulatory Visit Summary ARTUR PHAM :1975 Visit Date:10/15/2023 Ambulatory Visit Instructions Your Diagnosis BMI 31.0-31.9,adult Former smoker Marijuana use Your Care Team Attending Physician - Bertha Shepard Primary Care Physician - Bertha Shepard This Is Your Medications List meloxicam (meloxicam 15 mg Tab) Procedures Performed Surgery (2016). Discharge Vitals Heart Rate (Peripheral) 70 Respiratory [...] you for choosing us for your care. [facility] Family Medicine Office/Clini c Noteon 10-15-2023 Family [...] 30 tab(s), Refills(s) 0, Pharmacy: [facility] #[id number], 176.8, cm, 09/26/23 9:25:00 EDT, Height/Length Dosing, 95.9, kg, 09/26/23 9:25:00 EDT, Weight Dosing meloxicam, 15 mg = 1 tab(s), Oral, Daily, # 30 tab(s), Refills(s) 5, Pharmacy: [facility] #[id number], 176.8, cm, 10/15/23 10:24:00 EDT, Height/Length Dosing, 97.5, kg, 10/15/23 10:24:00 EDT, Weight Dosing methylPREDNISolone, = 1 packet(s), Oral, Once, as directed on package labeling, # 21 tab(s), Refills(s) 0, Pharmacy: [facility] #[id number], 176.8, cm, 10/15/23 10:24:00 EDT, Height/Length Dosing, [...] Use:. Cigarettes, Household tobacco concerns: No., 10/15/2023 [facility] Comment on above: Result Comment: Elec tronically Signed By: Bertha Shepard\.br\Date and Time Signed: 10/15/23 10:42 EDT Formson 10-15-2023 Forms [id number] 0TIFF [facility] Reminderson 10-02-2023 Reminders - From: Bertha Shepard [...] 40.6 % (14.0 - 50.0) 09/26/2023 9:43 [place] Auto 9.3 % (4.0 - 14.0) 09/26/2023 9:43 Eos Auto 5.5 % (0.0 - 8.0) 09/26/2023 9:43 Basophil Auto ((H)) 2.1 % (0.0 - 2.0) 09/26/2023 9:43 Neutro Absolute ((L)) 1.8 E9/L (2.0 - 7.5) 09/26/2023 9:43 Lymph Absolute 1.8 E9/L (1.0 - 4.0) 09/26/2023 9:43 [place] Absolute 0.4 E9/L (0.2 - 1.0) 09/26/2023 [...] 3.5) Patient informed and voiced understanding. Normal [facility] CBC w/ Auto Diffon 4 Basophils/100 WBC (Bld) 2.1 % High 0.0-2.0 [facility] Comment on above: Performed By: #### 1 4094435, 1982842, 6226241, 3364663, 1506222, 87250068 #### [facility] [address] [place] [address] Basophils/Leukocytes Auto (Bld) [Pure # fraction] 0.1 E9/L Normal 0.0-0.2 [facility] Comment on above: Performed By: #### 1 7950745, 5934315, 6984270, 0261081, 0895022, 97794718 #### [facility] [address] [place] [address] Eosinophils (Bld) [#/Vol] 0.2 E9/L Normal 0.0-0.5 [facility] Comment on above: Performed By: #### 1 2750719, 3220201, 7670457, 8584755, 6154481, 27712772 #### [facility] [address] [place] [address] Eosinophils/100 WBC (Bld) 5.5 % Normal 0.0-8.0 [facility] Comment on above: Performed By: #### 1 3840570, 5655948, 5172544, 7586657, 0079222, 60150082 #### [facility] [address] [place] [address] Erythrocyte distribution width (RBC) [Ratio] 13.3 % Normal 10.9-14.2 [facility] Comment on above: Performed By: #### 1 3491343, 2348350, 5776938, 5544578, 9909822, 61882930 #### [facility] [address] [place] [address] Hematocrit (Bld) [Volume fraction] 46.2 % Normal 37.7-49.0 [facility] Comment on above: Performed By: #### 1 7420010, 5638643, 6028547, 3686525, 9396600, 55078092 #### [facility] [address] [place] [address] Hemoglobin (Bld) [Mass/Vol] 15.0 g/dL Normal 13.5-17.5 [facility] Comment on above: Performed By: #### 1 3408797, 7744553, 1815841, 7074922, 7942507, 91458294 #### [facility] [address] [place] [address] Lymphocytes (Bld) [#/Vol] 1.8 E9/L Normal 1.0-4.0 [facility] Comment on above: Performed By: #### 1 2453763, 1824756, 5770692, 7176018, 3200666, 56955251 #### [facility] [address] [place] [address] Lymphocytes/100 WBC (Bld) 40.6 % Normal 14.0-50.0 [facility] Comment on above: Performed By: #### 1 4465585, 7333588, 3717557, 5210879, 1353616, 68386185 #### [facility] [address] [place] [address] MCH (RBC) [Entitic mass] 29.1 pg Normal 27.0-34.0 [facility] Comment on above: Performed By: #### 1 9840164, 4211603, 8395828, 6200673, 8986980, 86869833 #### [facility] [address] [place] [address] MCHC (RBC) [Mass/Vol] 32.5 g/dL Normal 31.4-36.0 [facility] Comment on above: Performed By: #### 1 6563143, 7732145, 1539282, 4404388, 9158146, 30623881 #### [facility] [address] [place] [address] MCV (RBC) [Entitic vol] 89.7 fL Normal 80.0-100.0 [facility] Comment on above: Performed By: #### 1 9339712, 8226947, 0284022, 2509349, 4667559, 51189283 #### [facility] [address] [place] [address] Monocytes (Bld) [#/Vol] 0.4 E9/L Normal 0.2-1.0 [facility] Comment on above: Performed By: #### 1 9394448, 4887309, 9945687, 4317966, 6536545, 27464376 #### [facility] [address] [place] [address] Neutrophils (Bld) [#/Vol] 1.8 E9/L Low 2.0-7.5 [facility] Comment on above: Performed By: #### 1 1737885, 9955898, 5071826, 5455381, 5423966, 25951367 #### [facility] [address] [place] [address] Neutrophils/100 WBC (Bld) 42.5 % Normal 36.0-75.0 [facility] Comment on above: Performed By: #### 1 0122623, 5213572, 1191132, 9846781, 5183178, 26065811 #### [facility] [address] [place] [address] Platelet mean volume (Bld) [Entitic vol] 9.2 fL Normal 6.4-10.8 [facility] Comment on above: Performed By: #### 1 8864749, 2797020, 1449434, 8080725, 2299532, 49659705 #### [facility] [address] [place] [address] Platelets (Bld) [#/Vol] 209.0 E9/L Normal 150.0-500.0 [facility] Comment on above: Performed By: #### 1 4301695, 1661336, 0851790, 8049997, 9694367, 86717254 #### [facility] [address] [place] [address] RBC (Bld) [#/Vol] 5.2 E12/L Normal 4.3-5.9 [facility] Comment on above: Performed By: #### 1 7677737, 5252038, 4936565, 0164808, 6101977, 32490039 #### [facility] [address] [place] [address] WBC corrected for nucl RBC Auto (Bld) [#/Vol] 4.3 E9/L Normal 4.0-11.0 [facility] Comment on above: Performed By: #### 1 3713089, 7783742, 3503162, 1720918, 4231257, 37382111 #### [facility] [address] [place] [address] CHEMISTRYOrdered By: SYSTEM SYSTEM on 09-26-2023 Albumin [...] Chem eGFR 108 mL/min/1.73 m2 Normal >=59mL/mi n/1 .73 m2 Remisol Chem Globulin (S) [Mass/Vol] 2.6 [...] for this result was chemiluminescence using [employer]'s Access Hybritech PSA reagent. Protein [Mass/Vol] 7.2 [...] 09-26-2023 Albumin [Mass/Vol] 4.6 g/dL Normal 3.3-5.0 [facility] Comment on above: Performed By: #### 1 0289819, 4337752, 6540601, 7986066, 3325622, 81914427 #### [facility] [address] [place] [address] Albumin/Globulin (S) [Mass conc ratio] 1.8 Normal 1.1-2.2 [facility] Comment on above: Performed By: #### 1 0415683, 9685933, 0151320, 7163340, 7861523, 29588798 #### [facility] [address] [address] ALP [Catalytic activity/Vol] 70 Int._Unit/L Normal 21-98 [facility] Comment on above: Performed By: #### 1 0109932, 1362195, 9938227, 4000065, 3001362, 69127749 #### [facility] [address] [place] [address] ALT No additional P-5'-P [Catalytic activity/Vol] 18 Int._Unit/L Normal 6-46 [facility] Comment on above: Performed By: #### 1 0066318, 1521735, 8766466, 3882832, 9428746, 42591710 #### [facility] [address] [place] [address] Anion gap [Moles/Vol] 11 mmol/L Normal 6-16 [facility] Comment on above: Performed By: #### 1 2436174, 5323197, 8715955, 9298202, 6791047, 78565892 #### [facility] [address] [place] [address] AST [Catalytic activity/Vol] 18 Int._Unit/L Normal 5-43 [facility] Comment on above: Performed By: #### 1 1070279, 6946228, 6015653, 3783229, 3022830, 26813171 #### [facility] [address] [place] [address] Bilirubin [Mass/Vol] 0.6 mg/dL Normal 0.0-1.1 [facility] Comment on above: Performed By: #### 1 8522369, 7569267, 8636714, 5963038, 5137050, 57166892 #### [facility] [address] [place] [address] Calcium [Mass/Vol] 9.0 mg/dL Normal 8.9-11.1 [facility] Comment on above: Performed By: #### 1 6053900, 2657507, 0500181, 8547196, 3174125, 28757520 #### [facility] [address] [place] [address] Chloride [Moles/Vol] 108 mmol/L Normal 101-111 [facility] Comment on above: Performed By: #### 1 2111474, 2082325, 9363748, 7592610, 5367171, 10557570 #### [facility] [address] [place] [address] CO2 [Moles/Vol] 23 mmol/L Normal 21-31 [facility] Comment on above: Performed By: #### 1 0382711, 7397155, 2851822, 3174048, 6657959, 96669667 #### [facility] [address] [place] [address] Creatinine [Mass/Vol] 0.8 mg/dL Normal 0.5-1.3 [facility] Comment on above: Performed By: #### 1 0893825, 9456360, 2172443, 4880810, 8476611, 91288916 #### [facility] [address] [place] [address] Globulin (S) [Mass/Vol] 2.6 g/dL Normal 1.4-4.0 [facility] Comment on above: Performed By: #### 1 4915384, 6703493, 0995120, 7904865, 0419425, 94970212 #### [facility] [address] [place] [address] Glucose [Mass/Vol] 95 mg/dL Normal 55-199 [facility] Comment on above: Performed By: #### 1 3737227, 9608675, 9582285, 7348861, 6335339, 37711508 #### [facility] [address] [place] [address] Potassium [Moles/Vol] 3.9 mmol/L Normal 3.5-5.3 [facility] Comment on above: Performed By: #### 1 0586242, 9892520, 6362850, 9060956, 9680047, 57954285 #### [facility] [address] [place] [address] Protein [Mass/Vol] 7.2 g/dL Normal 6.0-7.8 [facility] Comment on above: Performed By: #### 1 7347442, 0868599, 1598619, 4447120, 7045910, 63561499 #### [facility] [address] [place] [address] Sodium [Moles/Vol] 138 mmol/L Normal 135-145 [facility] Comment on above: Performed By: #### 1 6355748, 9952913, 6677548, 4864828, 7784056, 15449924 #### [facility] [address] [place] [address] Urea nitrogen [Mass/Vol] 20 mg/dL Normal 5-21 [facility] Comment on above: Performed By: #### 1 4117610, 6897679, 6042445, 8303464, 6026327, 28367493 #### [facility] [address] [place] [address] Urea nitrogen/Creatinine [Mass ratio] 25 No Units High 10-20 [facility] Comment on above: Performed By: #### 1 5901324, 2582291, 3087292, 3949964, 9525968, 60154365 #### [facility] [address] [facility] [place] [address] Family Medicine Office/Clini c Noteon 09-26-2023 Family Medicine Office/Clinic Note HPI Staff Artur is a 48 year old male presenting to [facility] care Establish Care: History: Any previous diagnosis: none [...] Diff Comprehensive Metabolic Panel Lab Specimen Collect 99793 Lipid Panel PSA Screen, Total Thyroid Stimulating [...] Diff Comprehensive Metabolic Panel Lab Specimen Collect 21611 Lipid Panel PSA Screen, Total Thyroid Stimulating Hormone 3. BMI 30.0-30.9,adult (Z68.30: Body mass index [BMI] 30.0-30.9, adult) BMI education complete Ordered: CBC w/ Auto Diff Comprehensive Metabolic Panel Lab Specimen Collect 25924 Lipid Panel PSA Screen, Total Thyroid Stimulating Hormone 4. Former smoker (Z87.891: Personal history of nicotine dependence) continue not smoking Ordered: CBC w/ Auto Diff Comprehensive Metabolic Panel Lab Specimen Collect 32877 Lipid Panel PSA Screen, Total Thyroid Stimulating Hormone 5. Screening for hyperlipidemia (Z13.220: Encounter for screening for lipoid disorders) lipid panel drawn Ordered: CBC w/ Auto Diff Comprehensive Metabolic Panel Lab Specimen Collect 11844 Lipid Panel PSA Screen, Total Thyroid Stimulating [...] Cigarettes, Household tobacco concerns: No., 09/26/2023 Normal [facility] Comment on above: Result Comment: Elec tronically Signed By: Bertha Shepard\.jacquelyn\Date and Time Signed: 09/26/23 10:33 EDT HEMATOLOGYOrdered [...] 09-26-2023 Cholesterol [Mass/Vol] 201 mg/dL High 120-200 [facility] Comment on above: Performed By: #### 1 6899020, 5431370, 3337644, 4169468, 7749086, 83498185 #### [facility] [address] [place] [address] Cholesterol in HDL [Mass/Vol] 57 mg/dL Invalid Interpretation Code [facility] Comment on above: Result Comment: '>= 60 LOW RISK' '<= 40 HIGH RISK' Performed By: #### 1 6074131, 1336899, 8022689, 9679613, 9773170, 10784884 #### [facility] [address] [place] [address] Cholesterol in LDL [Mass/Vol] 126 mg/dL Normal <=129 [facility] Comment on above: Performed By: #### 1 4929695, 5045976, 5248007, 5738110, 2977163, 42207608 #### [facility] [address] [place] [address] Cholesterol in VLDL [Mass/Vol] 12 mg/dL Normal 7-40 [facility] Comment on above: Performed By: #### 1 3870973, 2267491, 9532149, 5500062, 6667689, 87856582 #### [facility] [address] [place] [address] Triglyceride [Mass/Vol] 61 mg/dL Normal <=149 [facility] Comment on above: Performed By: #### 1 2855579, 4229378, 8837737, 7503571, 0981979, 50113091 #### [facility] [address] [place] [address] PSA Screen, Totalon 09-26-19 24 Prostate specific Ag [Mass/Vol] 1.2 ng/mL Normal 0.1-3.5 [facility] Comment on above: Result Comment: The concentration of PSA determined by different manufacturers can vary due to differences in assay methods and reagent specificity. Values obtained from different assay methods cannot be used interchangeably. The methodology used for this result was chemiluminescence using [employer]'s Access Hybritech PSA reagent. Performed By: #### 1 3043269, 5968839, 1928492, 1196851, 3463015, 56469596 #### [facility] [address] [place] [address] TSHon 09-26-2023 TSH Qn 0.39 m[IU]/L Normal 0.34-5.60 [facility] Comment on above: Performed By: #### 1 7142456, 5741996, 7868066, 7598308, 1909774, 67234479 #### [facility] [address] [place] [address] eGFRon 09-26-2023 eGFR 108 mL/min/1.73 m2 Normal >=59 [facility] Comment on above: Order Comment: Order added by Discern Expert. Performed By: #### 1 1518041, 9574602, 2877469, 4705971, 9217331, 18122295 #### [facility] [address] [place] [address] AMYLASEon 08-19-2019 Amylase [Catalytic activity/Vol] 83 U/L Normal 31-110 [facility] Comment on above: Performed By: #### C DEXTER BRITTON, CMP #### [facility] [address] [address] Gage Fatou CBC AUTO DIFFon 08-19-2019 Basophils (Bld) [#/Vol] 0.1 103/ul Normal 0.0-0.1 [facility] Comment on above: Performed By: #### C DEXTER BRITTON, CMP #### [facility] [address] [place], [place] [id number] Gage Fatou Basophils/100 WBC (Bld) 1.5 % Normal 0.2-2.0 [facility] Comment on above: Performed By: #### C DEXTER BRITTON, CMP #### [facility] [address] [place] [address] Gage Fatou Eosinophils (Bld) [#/Vol] 0.2 103/ul Normal 0.0-0.7 [facility] Comment on above: Performed By: #### C RP, LIPA, CMP #### [facility] [address] [place] [address] Gage Fatou Eosinophils/100 WBC (Bld) 4.7 % Normal 0.9-7.0 [facility] Comment on above: Performed By: #### C RP, LIPA, CMP #### [facility] [address] [place] [address] Gage Fatou Erythrocyte distribution width (RBC) [Ratio] 12.4 % Normal 11.0-15.0 [facility] Comment on above: Performed By: #### C RP, LIPA, CMP #### [facility] [address] [place] [address] Gage Fatou Hematocrit (Bld) [Volume fraction] 46.9 % Normal 42.0-54.0 [facility] Comment on above: Performed By: #### C RP LIPA, CMP #### [facility] [address] [place] [address] Gage Fatou Hemoglobin (Bld) [Mass/Vol] 15.8 g/dL Normal 14.0-18.0 [facility] Comment on above: Performed By: #### C RP, LIPA, CMP #### [facility] [address] [place] [address] Gage Fatou IG # 0.01 10e3/ul Normal 0.00-0.03 [facility] Comment on above: Performed By: #### C RP, LIPA, CMP #### [facility] [address] [place] [address] Gage Fatou IG % 0.2 % Normal 0.0-0.5 [facility] Comment on above: Performed By: #### C RP, LIPA, CMP #### [facility] [address] [place] [address] Gage Fatou Lymphocytes (Bld) [#/Vol] 1.8 103/ul Normal 1.2-3.8 [facility] Comment on above: Performed By: #### C DEXTER BRITTON, CMP #### [facility] [address] [place] [address] Gagemoncho Lainez Lymphocytes/100 WBC (Bld) 37.7 % Normal 20.5-60.0 [facility] Comment on above: Performed By: #### C DEXTER BRITTON, CMP #### [facility] [address] [place] [address] Gage Lainez MANUAL DIFF REQ NO Normal [facility] Comment on above: Performed By: #### C DEXTER BRITTON, CMP #### [facility] [address] [place] [address] Gage Fatou MCH (RBC) [Entitic mass] 29.3 pg Normal 25.9-34.0 [facility] Comment on above: Performed By: #### C DEXTER BRITTON, CMP #### [facility] [address] [place] [address] Gagemoncho Fernandezen MCHC (RBC) [Mass/Vol] 33.7 g/dL Normal 29.9-35.2 [facility] Comment on above: Performed By: #### C DEXTER BRITTON, CMP #### [facility] [address] [place] [address] Gagemoncho Lainez MCV (RBC) [Entitic vol] 87.0 fL Normal 80.0-94.0 [facility] Comment on above: Performed By: #### C DEXTER BRITTON, CMP #### [facility] [address] [place] [address] Gage Fatou Monocytes (Bld) [#/Vol] 0.5 103/ul Normal 0.3-0.8 [facility] Comment on above: Performed By: #### C DEXTER BRITTON, CMP #### [facility] [address] [place] [address] Gage Fatou Monocytes/100 WBC (Bld) 10.6 % Normal 1.7-12.0 [facility] Comment on above: Performed By: #### C RP, LIPA, CMP #### [facility] [address] [place] [address] Gage Fatou Neutrophils (Bld) [#/Vol] 2.1 103/ul Normal 1.4-6.5 [facility] Comment on above: Performed By: #### C RP, LIPA, CMP #### [facility] [address] [place] [address] Gage Fatou Neutrophils/100 WBC (Bld) 45.3 % Normal 43.0-75.0 [facility] Comment on above: Performed By: #### C RP, LIPA, CMP #### [facility] [address] [place] [address] Gage Fatou Platelet mean volume (Bld) [Entitic vol] 9.9 fL Normal 9.5-13.5 [facility] Comment on above: Performed By: #### C RP, LIPA, CMP #### [facility] [address] [place] [address] Gage Fatou Platelets (Bld) [#/Vol] 188 103/ul Normal 150-450 [facility] Comment on above: Performed By: #### C RP, LIPA, CMP #### [facility] [address] [place], [place] [address] Gage Fatou RBC (Bld) [#/Vol] 5.39 106/ul Normal 4.70-6.10 [facility] Comment on above: Performed By: #### C RP, LIPA, CMP #### [facility] [address] [place] [address] Gage Fatou WBC (Bld) [#/Vol] 4.6 103/ul Normal 4.0-11.0 [facility] Comment on above: Performed By: #### C RP, LIPA, CMP #### [facility] [address] [place] [address] Gage Fatou LIPASEon 08-19-2019 Lipase [Catalytic activity/Vol] 160.0 U/L Normal 23.0-300.0 [facility] Comment on above: Performed By: #### C RP, LIPA, CMP #### [facility] [address] [id number] Gage Fatou PROF 14(COMP METB)on 020 Albumin [Mass/Vol] 4.4 g/dL Normal 3.5-5.0 [facility] Comment on above: Performed By: #### C RP, LIPA, CMP #### [facility] [address] [id number] Gage Fatou Albumin/Globulin [Mass ratio] 1.3 {ratio} Normal [facility] Comment on above: Performed By: #### C RP, LIPA, CMP #### [facility] [address] [id number] Gage Fatou ALP [Catalytic activity/Vol] 76 U/L Normal 38-126 [facility] Comment on above: Performed By: #### C RP, LIPA, CMP #### [facility] [address] [address] Gage Fatou ALT [Catalytic activity/Vol] 25 U/L Normal 21-72 [facility] Comment on above: Performed By: #### C RP, LIPA, CMP #### [facility] [address] [id number] Gage Fatou Anion gap [Moles/Vol] 10.9 mmol/L Normal [facility] Comment on above: Performed By: #### C RP, LIPA, CMP #### [facility] [address] [address] Gage Fatou AST [Catalytic activity/Vol] 15 U/L Critically low 17-59 [facility] Comment on above: Performed By: #### C RP, LIPA, CMP #### [facility] [address] [id number] Gage Fatou Bilirubin Ql (U) 0.5 mg/dL Normal 0.2-1.3 [facility] Comment on above: Performed By: #### C RP, LIPA, CMP #### [facility] [address] [id number] Gage Fatou Calcium [Mass/Vol] 9.2 mg/dL Normal 8.4-10.2 [facility] Comment on above: Performed By: #### C RP, LIPA, CMP #### [facility] [address] [place] [address] Gage Fatou Chloride [Moles/Vol] 103 mmol/L Normal 98-107 [facility] Comment on above: Performed By: #### C RP, LIPA, CMP #### [facility] [address] [place] [address] Gage Fatou CO2 [Moles/Vol] 31.1 mmol/L Critically high 22.0-30.0 [facility] Comment on above: Performed By: #### C RP, LIPA, CMP #### [facility] [address] [place] [address] Gage Fatou Creatinine [Mass/Vol] 0.90 mg/dL Normal 0.66-1.25 [facility] Comment on above: Performed By: #### C RP, LIPA, CMP #### [facility] [address] [place] [address] Gage Fatou EGFR-AF MONTENEGRIN >60 Normal >=60 [facility] Comment on above: Performed By: #### C RP, LIPA, CMP #### [facility] [address] [place] [address] Gage Fatou EGFR-NON AF MONTENEGRIN >60 Normal >=60 [facility] Comment on above: Performed By: #### C RP, LIPA, CMP #### [facility] [address] [place] [address] Gage Fatou Globulin (S) [Mass/Vol] 3.4 g/dL Normal [facility] Comment on above: Performed By: #### C RP, LIPA, CMP #### [facility] [address] [place] [address] Gage Fatou Glucose [Mass/Vol] 91 mg/dL Normal 74-106 [facility] Comment on above: Performed By: #### C RP, LIPA, CMP #### [facility] [address] [place] [address] Gage Fatou Potassium [Moles/Vol] 4.0 mmol/L Normal 3.4-5.0 [facility] Comment on above: Performed By: #### C DEXTER BRITTON, CMP #### [facility] [address] [place] [address] Gage Fatou Protein [Mass/Vol] 7.8 g/dL Normal 6.1-8.2 [facility] Comment on above: Performed By: #### C DEXTER BRITTON, CMP #### [facility] [address] [place] [address] Gage Fatou Sodium [Moles/Vol] 141 mmol/L Normal 137-145 [facility] Comment on above: Performed By: #### C DEXTER BRITTON, CMP #### [facility] [address] [place] [address] Gage Fatou Urea nitrogen [Mass/Vol] 14.0 mg/dL Normal 9.0-20.0 [facility] Comment on above: Performed By: #### C DEXTER BRITTON, CMP #### [facility] [address] [place] [address] Gage Fatou Urea nitrogen/Creatinine [Mass ratio] 15.6 mg/mg Normal [facility] Comment on above: Performed By: #### C DEXTER BRITTON, CMP #### [facility] [address] [place] [address] Gage Fatou AMYLASEon 06-26-2019 Amylase [Catalytic activity/Vol] 73 U/L Normal 31-110 [facility] Comment on above: Performed By: #### C DEXTER BRITTON, CMP #### [facility] [address] [place] [address] Gage Fatou BILIRUBIN CONJUGATED (DIRECT )on 06-26-2019 BILI, CONJUGATED 0.2 mg/dL Normal 0.0-0.3 [facility] Comment on above: Performed By: #### C DEXTER BRITTON, CMP #### [facility] [address] [place] [address] Gage Fatou CBC AUTO DIFFon 06-26-2019 Basophils (Bld) [#/Vol] 0.1 103/ul Normal 0.0-0.1 [facility] Comment on above: Performed By: #### S EDR #### [facility] [address] [place], [place] [id number] Gage Fatou Basophils/100 WBC (Bld) 1.1 % Normal 0.2-2.0 [facility] Comment on above: Performed By: #### S EDR #### [facility] [address] [place], [place] [address] Gage Fatou Eosinophils (Bld) [#/Vol] 0.2 103/ul Normal 0.0-0.7 [facility] Comment on above: Performed By: #### S EDR #### [facility] [address] [place], [place] [address] Gage Fatou Eosinophils/100 WBC (Bld) 2.7 % Normal 0.9-7.0 [facility] Comment on above: Performed By: #### S EDR #### [facility] [address] [place] [address] Gage Fatou Erythrocyte distribution width (RBC) [Ratio] 12.1 % Normal 11.0-15.0 [facility] Comment on above: Performed By: #### S EDR #### [facility] [address] [place], [place] [address] Gage Fatou Hematocrit (Bld) [Volume fraction] 45.3 % Normal 42.0-54.0 [facility] Comment on above: Performed By: #### S EDR #### [facility] [address] [place], [place] [address] Gage Fatou Hemoglobin (Bld) [Mass/Vol] 15.2 g/dL Normal 14.0-18.0 [facility] Comment on above: Performed By: #### S EDR #### [facility] [address] [place], [place] [address] Gage Fatou IG # 0.02 10e3/ul Normal 0.00-0.03 [facility] Comment on above: Performed By: #### S EDR #### [facility] [address] [place], [place] [address] Gage Fatou IG % 0.3 % Normal 0.0-0.5 [facility] Comment on above: Performed By: #### S EDR #### [facility] [address] [id number] Gage Fatou Lymphocytes (Bld) [#/Vol] 1.4 103/ul Normal 1.2-3.8 [facility] Comment on above: Performed By: #### S EDR #### [facility] [address] [place], [place] [address] Gage Fatou Lymphocytes/100 WBC (Bld) 22.0 % Normal 20.5-60.0 [facility] Comment on above: Performed By: #### S EDR #### [facility] [address] [place], [place] [address] Gagemoncho Fernandezen MANUAL DIFF REQ NO Normal [facility] Comment on above: Performed By: #### S EDR #### [facility] [address] [place], [place] [address] Gage Fatou MCH (RBC) [Entitic mass] 29.0 pg Normal 25.9-34.0 [facility] Comment on above: Performed By: #### S EDR #### [facility] [address] [place], [place] [address] Gage Fatou MCHC (RBC) [Mass/Vol] 33.6 g/dL Normal 29.9-35.2 [facility] Comment on above: Performed By: #### S EDR #### [facility] [address] [place], [place] [address] Gage Fatou MCV (RBC) [Entitic vol] 86.3 fL Normal 80.0-94.0 [facility] Comment on above: Performed By: #### S EDR #### [facility] [address] [place], [place] [address] Gage Fatou Monocytes (Bld) [#/Vol] 0.5 103/ul Normal 0.3-0.8 [facility] Comment on above: Performed By: #### S EDR #### [facility] [address] [place], [place] [address] Gage Fatou Monocytes/100 WBC (Bld) 7.9 % Normal 1.7-12.0 [facility] Comment on above: Performed By: #### S EDR #### [facility] [address] [place], [place] [address] Gage Fatou Neutrophils (Bld) [#/Vol] 4.2 103/ul Normal 1.4-6.5 [facility] Comment on above: Performed By: #### S EDR #### [facility] [address] [place], [place] [address] Gagemoncho Lainez Neutrophils/100 WBC (Bld) 66.0 % Normal 43.0-75.0 [facility] Comment on above: Performed By: #### S EDR #### [facility] [address] [place], [place] [address] Gagemoncho Lainez Platelet mean volume (Bld) [Entitic vol] 10.1 fL Normal 9.5-13.5 [facility] Comment on above: Performed By: #### S EDR #### [facility] [address] [place] [address] Gagemoncho Lainez Platelets (Bld) [#/Vol] 194 103/ul Normal 150-450 [facility] Comment on above: Performed By: #### S EDR #### [facility] [address] [place], [place] [address] Gagemoncho Lainez RBC (Bld) [#/Vol] 5.25 106/ul Normal 4.70-6.10 [facility] Comment on above: Performed By: #### S EDR #### [facility] [address] [place], [place] [address] Gagemoncho Lainez WBC (Bld) [#/Vol] 6.3 103/ul Normal 4.0-11.0 [facility] Comment on above: Performed By: #### S EDR #### [facility] [address] [place], [place] [address] Gage Lainez LIPASEon 06-26-2019 Lipase [Catalytic activity/Vol] 153.0 U/L Normal 23.0-300.0 [facility] Comment on above: Performed By: #### C RP, LIPA, CMP #### [facility] [address] [place], [place] [address] Gage Fatou PROF 14(COMP METB)on 019 Albumin [Mass/Vol] 4.5 g/dL Normal 3.5-5.0 [facility] Comment on above: Performed By: #### C RP, LIPA, CMP #### [facility] [address] [place], [place] [address] Gage Fatou Albumin/Globulin [Mass ratio] 1.1 {ratio} Normal [facility] Comment on above: Performed By: #### C RP, LIPA, CMP #### [facility] [address] [id number] Gage Fatou ALP [Catalytic activity/Vol] 73 U/L Normal 38-126 [facility] Comment on above: Performed By: #### C RP, LIPA, CMP #### [facility] [address] [id number] Gage Fatou ALT [Catalytic activity/Vol] 29 U/L Normal 21-72 [facility] Comment on above: Performed By: #### C RP, LIPA, CMP #### [facility] [address] [place], [place] [address] Gage Fatou Anion gap [Moles/Vol] 11.8 mmol/L Normal [facility] Comment on above: Performed By: #### C RP, LIPA, CMP #### [facility] [address] [id number] Gage Fatou AST [Catalytic activity/Vol] 19 U/L Normal 17-59 [facility] Comment on above: Performed By: #### C RP, LIPA, CMP #### [facility] [address] [place], [place] [address] Gage Fatou Bilirubin Ql (U) 0.8 mg/dL Normal 0.2-1.3 [facility] Comment on above: Performed By: #### C RP, LIPA, CMP #### [facility] [address] [place], [place] [address] Gage Fatou Calcium [Mass/Vol] 9.4 mg/dL Normal 8.4-10.2 [facility] Comment on above: Performed By: #### C RP, LIPA, CMP #### [facility] [address] [address] Gage Fatou Chloride [Moles/Vol] 102 mmol/L Normal 98-107 [facility] Comment on above: Performed By: #### C RP, LIPA, CMP #### [facility] [address] [place] [address] Gage Fatou CO2 [Moles/Vol] 31.2 mmol/L Critically high 22.0-30.0 [facility] Comment on above: Performed By: #### C RP, LIPA, CMP #### [facility] [address] [place] [address] Gage Fatou Creatinine [Mass/Vol] 0.94 mg/dL Normal 0.66-1.25 [facility] Comment on above: Performed By: #### C RP, LIPA, CMP #### [facility] [address] [place] [address] Gage Fatou EGFR-AF MONTENEGRIN >60 Normal >=60 [facility] Comment on above: Performed By: #### C RP, LIPA, CMP #### [facility] [address] [place] [address] Gage Fatou EGFR-NON AF MONTENEGRIN >60 Normal >=60 [facility] Comment on above: Performed By: #### C RP, LIPA, CMP #### [facility] [address] [place] [address] Gage Fatou Globulin (S) [Mass/Vol] 4.0 g/dL Normal [facility] Comment on above: Performed By: #### C RP, LIPA, CMP #### [facility] [address] [place] [address] Gage Fatou Glucose [Mass/Vol] 113 mg/dL Critically high 74-106 [facility] [place] [facility] Comment on above: Performed By: #### C RP, LIPA, CMP #### [facility] [address] [place] [address] Gage Fatou Potassium [Moles/Vol] 4.0 mmol/L Normal 3.4-5.0 [facility] Comment on above: Performed By: #### C RP, LIPA, CMP #### [facility] [address] [place] [address] Gage Fatou Protein [Mass/Vol] 8.5 g/dL Critically high 6.1-8.2 [facility] Comment on above: Performed By: #### C RP, LIPA, CMP #### [facility] [address] [place], [place] [address] Gage Fatou Sodium [Moles/Vol] 141 mmol/L Normal 137-145 [facility] Comment on above: Performed By: #### C RP, LIPA, CMP #### [facility] [address] [place] [address] Gage Fatou Urea nitrogen [Mass/Vol] 18.0 mg/dL Normal 9.0-20.0 [facility] Comment on above: Performed By: #### C RP, LIPA, CMP #### [facility] [address] [place] [address] Gage Fatou Urea nitrogen/Creatinine [Mass ratio] 19.1 mg/mg Normal [facility] Comment on above: Performed By: #### C RP, LIPA, CMP #### [facility] [address] [place], [place] [address] Gage Fatou XR ABD FLAT/UPon 06-25-2019 XR ABD FLAT/UP Patient: ARTUR PHAM Exam Date: 06/25/2019 : 1975 Gender:M Ordering : [facility] Admission #: [id number] Family : [place] Order #: [id number] CLICK HERE TO VIEW EXAM RADIOLOGY REPORT PROCEDURE: RADIOGRAPH ABDOMEN FLAT AND UPRIGHT COMPARISON: XR ABD FLAT UP/PA , 05/01/2019. INDICATIONS: Acute pancreatitis. Acute epigastric pain radiating to left upper quadrant for 2 months FINDINGS: BOWEL GAS PATTERN: Non-obstructed. FREE AIR: None. CALCIFICATIONS: None significant. BONES: No fracture or visible bone lesion. OTHER: Negative. CONCLUSION: 1. Nonobstructive bowel gas pattern Dictated by: Barbara Gutierrez M.D. on 06/25/2019 at 15:40 Approved by: Barbara Gutierrez M.D. on 06/25/2019 at 15:41 Normal [facility] AMYLASEon 05-02-2019 Amylase [Catalytic activity/Vol] 96 U/L Normal 31-110 [facility] Comment on above: Performed By: #### S EDR #### [facility] [address] [place], [place] [address] Gage Fatou CBC AUTO DIFFon 05-02-2019 Basophils (Bld) [#/Vol] 0.0 103/ul Normal 0.0-0.1 [facility] Comment on above: Performed By: #### S EDR #### [facility] [address] [place], [place] [address] Gage Fatou Basophils/100 WBC (Bld) 0.3 % Normal 0.2-2.0 [facility] Comment on above: Performed By: #### S EDR #### [facility] [address] [place] [address] Gage Fatou Eosinophils (Bld) [#/Vol] 0.1 103/ul Normal 0.0-0.7 [facility] Comment on above: Performed By: #### S EDR #### [facility] [address] [place] [address] Gage Fatou Eosinophils/100 WBC (Bld) 3.3 % Normal 0.9-7.0 [facility] Comment on above: Performed By: #### S EDR #### [facility] [address] [place] [address] Gage Fatou Erythrocyte distribution width (RBC) [Ratio] 12.7 % Normal 11.0-15.0 [facility] Comment on above: Performed By: #### S EDR #### [facility] [address] [place], [place] [address] Gage Fatou Hematocrit (Bld) [Volume fraction] 42.0 % Normal 42.0-54.0 [facility] Comment on above: Performed By: #### S EDR #### [facility] [address] [place], [place] [address] Gage Fatou Hemoglobin (Bld) [Mass/Vol] 14.4 g/dL Normal 14.0-18.0 [facility] Comment on above: Performed By: #### S EDR #### [facility] [address] [place] [address] Gage Fatou IG # 0.01 10e3/ul Normal 0.00-0.03 [facility] Comment on above: Performed By: #### S EDR #### [facility] [address] [place] [address] Gage Fatou IG % 0.3 % Normal 0.0-0.5 [facility] Comment on above: Performed By: #### S EDR #### [facility] [address] [place] [address] Gage Fatou Lymphocytes (Bld) [#/Vol] 1.3 103/ul Normal 1.2-3.8 [facility] Comment on above: Performed By: #### S EDR #### [facility] [address] [place] [address] Gage Fatou Lymphocytes/100 WBC (Bld) 36.7 % Normal 20.5-60.0 [facility] Comment on above: Performed By: #### S EDR #### [facility] [address] [place], [place] [address] Gagemoncho Lainez MANUAL DIFF REQ NO Normal [facility] Comment on above: Performed By: #### S EDR #### [facility] [address] [place] [address] Gage Fatou MCH (RBC) [Entitic mass] 29.8 pg Normal 25.9-34.0 [facility] Comment on above: Performed By: #### S EDR #### [facility] [address] [place], [place] [address] Gage Fatou MCHC (RBC) [Mass/Vol] 34.3 g/dL Normal 29.9-35.2 [facility] Comment on above: Performed By: #### S EDR #### [facility] [address] [place], [place] [address] Gage Fatou MCV (RBC) [Entitic vol] 86.8 fL Normal 80.0-94.0 [facility] Comment on above: Performed By: #### S EDR #### [facility] [address] [place], [place] [address] Gage Fatou Monocytes (Bld) [#/Vol] 0.6 103/ul Normal 0.3-0.8 [facility] Comment on above: Performed By: #### S EDR #### [facility] [address] [place], [place] [address] Gage Fatou Monocytes/100 WBC (Bld) 15.9 % Critically high 1.7-12.0 [facility] Comment on above: Performed By: #### S EDR #### [facility] [address] [place] [address] Gage Fatou Neutrophils (Bld) [#/Vol] 1.6 103/ul Normal 1.4-6.5 [facility] Comment on above: Performed By: #### S EDR #### [facility] [address] [place] [address] Gage Fatou Neutrophils/100 WBC (Bld) 43.5 % Normal 43.0-75.0 [facility] Comment on above: Performed By: #### S EDR #### [facility] [address] [place], [place] [address] Gage Fatou Platelet mean volume (Bld) [Entitic vol] 10.2 fL Normal 9.5-13.5 [facility] Comment on above: Performed By: #### S EDR #### [facility] [address] [place], [place] [address] Gage Fatou Platelets (Bld) [#/Vol] 181 103/ul Normal 150-450 [facility] Comment on above: Performed By: #### S EDR #### [facility] [address] [place], [place] [address] Gage Fatou RBC (Bld) [#/Vol] 4.84 106/ul Normal 4.70-6.10 [facility] Comment on above: Performed By: #### S EDR #### [facility] [address] [place], [place] [address] Gagemoncho Lainez WBC (Bld) [#/Vol] 3.7 103/ul Critically low 4.0-11.0 [facility] Comment on above: Performed By: #### S EDR #### [facility] [address] [place], [place] [address] Gagemoncho Lainez GLYCOHEMOGLOBIN A1Con 2018 Glucose [Mass/Vol] 111 mg/dL Normal [facility] Comment on above: Performed By: #### S EDR #### [facility] [address] [place], [place] [address] Gagemoncho Lainez HbA1c (Bld) [Mass fraction] 5.5 % Normal <=6.0 [facility] Comment on above: Performed By: #### S EDR #### [facility] [address] [place], [place] [address] Gage Lainez LIPASEon 05-02-2019 Lipase [Catalytic activity/Vol] 197.0 U/L Normal 23.0-300.0 [facility] Comment on above: Performed By: #### S EDR #### [facility] [address] [place], [place] [address] Gage Fatou LIPID PROFILEon 05-02-2019 CHOL-HDL RATIO NORM SEE BELOW Normal [facility] Comment on above: Result Comment: 3.3 - 4.4 LOW RISK 4.4 - 7.1 AVERAGE RISK 7.1 - 11.0 MODERATE RISK >11.0 HIGH RISK Performed By: #### S EDR #### [facility] [address] [place], [place] [address] Gage Fatou Cholesterol [Mass/Vol] 195 mg/dL Normal <=200 [facility] Comment on above: Performed By: #### S EDR #### [facility] [address] [place], [place] [address] Gage Fatou Cholesterol in HDL [Mass/Vol] > or = 60 mg/dl - LOW CARDIOVASCULAR RISK <40 mg/dl - HIGH CARDIOVASCULAR RISK Normal [facility] Comment on above: Performed By: #### S EDR #### [facility] [address] [place], [place] [address] Gage Fatou Cholesterol in HDL [Mass/Vol] 63 mg/dL Normal [facility] Comment on above: Performed By: #### S EDR #### [facility] [address] [place] [address] Gage Fatou Cholesterol in LDL [Mass/Vol] SEE BELOW Normal [facility] Comment on above: Result Comment: <100 mg/dl OPTIMAL 100 - 129 mg/dl NEAR OR ABOVE OPTIMAL 130 - 159 mg/dl BORDERLINE HIGH 160 - 189 mg/dl HIGH >190 mg/dl VERY HIGH Performed By: #### S EDR #### [facility] [address] [place], [place] [address] Gage Fatou Cholesterol in LDL [Mass/Vol] 122.8 mg/dL Normal [facility] Comment on above: Performed By: #### S EDR #### [facility] [address] [place], [place] [address] Gage Fatou Cholesterol.total/Cho lesterol in HDL [Mass ratio] 3.1 {ratio} Normal [facility] Comment on above: Performed By: #### S EDR #### [facility] [address] [place], [place] [address] Gage Fatou Triglyceride [Mass/Vol] 46 mg/dL Normal <=150 [facility] Comment on above: Performed By: #### S EDR #### [facility] [address] [place], [place] [address] Gage Fatou VLDL CALC 9.2 mg/dL Normal [facility] Comment on above: Performed By: #### S EDR #### [facility] [address] [place] [address] Gage Fatou PROCALCITONINon 05-02-2019 PCT header 1 SEE BELOW Normal [facility] Comment on above: Result Comment: PCT <0.5ng/mL: Systemic infection (sepsis) is not likely, local bacterial infection possible, low risk for progression to severe systemic infection (severe sepsis) Performed By: #### S EDR #### [facility] [address] [place], [place] [address] Gage Fatou PCT header 2 SEE BELOW Normal [facility] Comment on above: Result Comment: PCT >/=0.5 and <2 ng/mL: Systemic infection (sepsis) is possible, moderate risk for progression to severe systemic infection (severe sepsis) Performed By: #### S EDR #### [facility] [address] [place] [address] Gagemoncho Lainez PCT header 3 SEE BELOW Normal [facility] Comment on above: Result Comment: PCT >/=2.0 and <10 ng/mL: Systemic infection (sepsis) is likely, unless other causes are known, high risk for progession to severe systemic infection(severe sepsis) Performed By: #### S EDR #### [facility] [address] [place] [address] Gage Fatou PCT header 4 SEE BELOW Normal [facility] Comment on above: Result Comment: PCT >/= 10 ng/mL: Important systemic inflammatory response almost exclusively due to severe bacterial sepsis or septic shock, high likelihood of severe sepsis or septic shock Performed By: #### S EDR #### [facility] [address] [place] [address] Gage Lainez PROCALCITONIN 0.06 ng/mL Normal 0.00-0.50 [facility] Comment on above: Performed By: #### S EDR #### [facility] [address] [place], [place] [address] Gage Lainez PROF 14(COMP METB)on 019 Albumin [Mass/Vol] 3.1 g/dL Critically low 3.5-5.0 [facility] Comment on above: Performed By: #### S EDR #### [facility] [address] [place], [place] [address] Gage Lainez Albumin/Globulin [Mass ratio] 1.0 {ratio} Normal [facility] Comment on above: Performed By: #### S EDR #### [facility] [address] [place], [place] [address] Gage Lainez ALP [Catalytic activity/Vol] 60 U/L Normal 38-126 [facility] Comment on above: Performed By: #### S EDR #### [facility] [address] [place], [place] [address] Gage Fatou ALT [Catalytic activity/Vol] 29 U/L Normal 21-72 [facility] Comment on above: Performed By: #### S EDR #### [facility] [address] [place], [place] [address] Gage Fatou Anion gap [Moles/Vol] 11.7 mmol/L Normal [facility] Comment on above: Performed By: #### S EDR #### [facility] [address] [place] [id number] Gage Fatou AST [Catalytic activity/Vol] 14 U/L Critically low 17-59 [facility] Comment on above: Performed By: #### S EDR #### [facility] [address] [place], [place] [address] Gage Fatou Bilirubin Ql (U) 0.6 mg/dL Normal 0.2-1.3 [facility] Comment on above: Performed By: #### S EDR #### [facility] [address] [place] [address] Gage Fatou Calcium [Mass/Vol] 8.0 mg/dL Critically low 8.4-10.2 [facility] Comment on above: Performed By: #### S EDR #### [facility] [address] [place] [address] Gage Fatou Chloride [Moles/Vol] 105 mmol/L Normal 98-107 [facility] Comment on above: Performed By: #### S EDR #### [facility] [address] [place], [place] [address] Gage Fatou CO2 [Moles/Vol] 24.0 mmol/L Normal 22.0-30.0 [facility] Comment on above: Performed By: #### S EDR #### [facility] [address] [place], [place] [address] Gage Fatou Creatinine [Mass/Vol] 0.90 mg/dL Normal 0.66-1.25 [facility] Comment on above: Performed By: #### S EDR #### [facility] [address] [place], [place] [address] Gage Fatou EGFR-AF MONTENEGRIN >60 Normal >=60 [facility] Comment on above: Performed By: #### S EDR #### [facility] [address] [place], [place] [address] Gage Fatou EGFR-NON AF MONTENEGRIN >60 Normal >=60 [facility] Comment on above: Performed By: #### S EDR #### [facility] [address] [place], [place] [address] Gage Fatou Globulin (S) [Mass/Vol] 3.2 g/dL Normal [facility] Comment on above: Performed By: #### S EDR #### [facility] [address] [place] [address] Gage Fatou Glucose [Mass/Vol] 107 mg/dL Critically high 74-106 [facility] Comment on above: Performed By: #### S EDR #### [facility] [address] [place], [place] [address] Gage Fatou Potassium [Moles/Vol] 3.7 mmol/L Normal 3.4-5.0 [facility] Comment on above: Performed By: #### S EDR #### [facility] [address] [place], [place] [address] Gage Fatou Protein [Mass/Vol] 6.3 g/dL Normal 6.1-8.2 [facility] Comment on above: Performed By: #### S EDR #### [facility] [address] [place], [place] [address] Gage Fatou Sodium [Moles/Vol] 137 mmol/L Normal 137-145 [facility] Comment on above: Performed By: #### S EDR #### [facility] [address] [place], [place] [address] Gage Fatou Urea nitrogen [Mass/Vol] 8.0 mg/dL Critically low 9.0-20.0 [facility] Comment on above: Performed By: #### S EDR #### [facility] [address] [place], [place] [address] Gage Fatou Urea nitrogen/Creatinine [Mass ratio] 8.9 mg/mg Normal [facility] Comment on above: Performed By: #### S EDR #### [facility] [address] [place] [address] Gage Lainez US SINGLE QUAD RT UPPERon US SINGLE QUAD RT UPPER Patient: ARTUR PHAM Exam Date: 05/02/2019 : 1975 Gender:M Ordering : DR CARMEN SALAZAR . Admission #: [id number] Family : DR BARBARA GUTIERREZ M.D. Order #: [id number] CLICK HERE TO VIEW EXAM RADIOLOGY REPORT [...] M.D. on 05/02/2019 at 09:50 Normal [facility] AMYLASEon 05-01-2019 Amylase [Catalytic activity/Vol] 244 U/L Critically high 31-110 [facility] Comment on above: Performed By: #### A MY #### [facility] [address] [place] [address] Gage Fatou CBC AUTO DIFFon 05-01-2019 Basophils (Bld) [#/Vol] 0.0 103/ul Normal 0.0-0.1 [facility] Comment on above: Performed By: #### C BC #### [facility] [address] [place], [place] [address] Gage Fatou Basophils/100 WBC (Bld) 0.5 % Normal 0.2-2.0 [facility] Comment on above: Performed By: #### C BC #### [facility] [address] [place], [place] [address] Gage Fatou Eosinophils (Bld) [#/Vol] 0.1 103/ul Normal 0.0-0.7 [facility] Comment on above: Performed By: #### C BC #### [facility] [address] [place], [place] [address] Gage Fatou Eosinophils/100 WBC (Bld) 1.3 % Normal 0.9-7.0 [facility] Comment on above: Performed By: #### C BC #### [facility] [address] [place], [place] [address] Gage Fatou Erythrocyte distribution width (RBC) [Ratio] 12.6 % Normal 11.0-15.0 [facility] Comment on above: Performed By: #### C BC #### [facility] [address] [place] [address] Gage Fatou Hematocrit (Bld) [Volume fraction] 47.2 % Normal 42.0-54.0 [facility] Comment on above: Performed By: #### C BC #### [facility] [address] [place], [place] [address] Gage Fatou Hemoglobin (Bld) [Mass/Vol] 16.0 g/dL Normal 14.0-18.0 [facility] Comment on above: Performed By: #### C BC #### [facility] [address] [place], [place] [address] Gage Fatou IG # 0.03 10e3/ul Normal 0.00-0.03 [facility] Comment on above: Performed By: #### C BC #### [facility] [address] [place] [address] Gage Fatou IG % 0.5 % Normal 0.0-0.5 [facility] Comment on above: Performed By: #### C BC #### [facility] [address] [place], [place] [address] Gage Fatou Lymphocytes (Bld) [#/Vol] 0.8 103/ul Critically low 1.2-3.8 [facility] Comment on above: Performed By: #### C BC #### [facility] [address] [place], [place] [address] Gage Fatou Lymphocytes/100 WBC (Bld) 12.2 % Critically low 20.5-60.0 [facility] Comment on above: Performed By: #### C BC #### [facility] [address] [place], [place] [address] Gage Fatou MANUAL DIFF REQ NO Normal [facility] Comment on above: Performed By: #### C BC #### [facility] [address] [place] [id number] Gage Fatou MCH (RBC) [Entitic mass] 29.2 pg Normal 25.9-34.0 [facility] Comment on above: Performed By: #### C BC #### [facility] [address] [place], [place] [address] Gage Fatou MCHC (RBC) [Mass/Vol] 33.9 g/dL Normal 29.9-35.2 [facility] Comment on above: Performed By: #### C BC #### [facility] [address] [place], [place] [address] Gage Fatou MCV (RBC) [Entitic vol] 86.1 fL Normal 80.0-94.0 [facility] Comment on above: Performed By: #### C BC #### [facility] [address] [place], [place] [address] Gage Fatou Monocytes (Bld) [#/Vol] 0.6 103/ul Normal 0.3-0.8 [facility] Comment on above: Performed By: #### C BC #### [facility] [address] [place], [place] [address] Gage Fatou Monocytes/100 WBC (Bld) 8.8 % Normal 1.7-12.0 [facility] Comment on above: Performed By: #### C BC #### [facility] [address] [place] [address] Gage Fatou Neutrophils (Bld) [#/Vol] 4.8 103/ul Normal 1.4-6.5 [facility] Comment on above: Performed By: #### C BC #### [facility] [address] [place], [place] [address] Gage Fatou Neutrophils/100 WBC (Bld) 76.7 % Critically high 43.0-75.0 [facility] Comment on above: Performed By: #### C BC #### [facility] [address] [place], [place] [address] Gage Fatou Platelet mean volume (Bld) [Entitic vol] 10.0 fL Normal 9.5-13.5 [facility] Comment on above: Performed By: #### C BC #### [facility] [address] [place], [place] [address] Gage Fatou Platelets (Bld) [#/Vol] 198 103/ul Normal 150-450 [facility] Comment on above: Performed By: #### C BC #### [facility] [address] [place], [place] [address] Gage Fatou RBC (Bld) [#/Vol] 5.48 106/ul Normal 4.70-6.10 [facility] Comment on above: Performed By: #### C BC #### [facility] [address] [place], [place] [address] Gage Fatou WBC (Bld) [#/Vol] 6.2 103/ul Normal 4.0-11.0 [facility] Comment on above: Performed By: #### C BC #### [facility] [address] [place], [place] [address] Gagemoncho Fernandezen CRPon 05-01-2019 CRP [Mass/Vol] 2.4 mg/dL Critically high <=1.0 [facility] Comment on above: Performed By: #### C RP, LIPA, CMP #### [facility] [address] [place], [place] [address] ABD/PELVIS W CONon 2018 CT ABD/PELVIS W CON Patient: ARTUR PHAM Exam Date: 05/01/2019 : 1975 Gender:M Ordering : TAPAN SERNA PA Admission #: [id number] Family : DR PITO NARAYANAN D.O. Order #: [id number] CLICK HERE TO VIEW EXAM RADIOLOGY REPORT [...] Gutierrez M.D. on 05/01/2019 at 17:10 Normal [facility] CT HEAD WO CONon 05-01-2019 CT HEAD WO CON Patient: ARTUR PHAM Exam Date: 05/01/2019 : 1975 Gender:M Ordering : TAPAN GARDNER Admission #: [id number] Family : DR PITO NARAYANAN D.O. Order #: [id number] CLICK HERE TO VIEW EXAM RADIOLOGY REPORT [...] M.D. on 05/01/2019 at 15:08 Normal [facility] LIPASEon 05-01-2019 Lipase [Catalytic activity/Vol] 1422.0 U/L Critically high 23.0-300.0 [facility] Comment on above: Result Comment: test repeated critical value verified Performed By: #### C RP, LIPA, CMP #### [facility] [address] [place] [address] Gage Fatou PROCALCITONINon 05-01-2019 PCT header 1 SEE BELOW Normal [facility] Comment on above: Result Comment: PCT <0.5ng/mL: Systemic infection (sepsis) is not likely, local bacterial infection possible, low risk for progression to severe systemic infection (severe sepsis) Performed By: #### P RL #### [facility] [address] [place] [address] Gage Fatou PCT header 2 SEE BELOW Normal [facility] Comment on above: Result Comment: PCT >/=0.5 and <2 ng/mL: Systemic infection (sepsis) is possible, moderate risk for progression to severe systemic infection (severe sepsis) Performed By: #### P RL #### [facility] [address] [place] [address] Gage Fatou PCT header 3 SEE BELOW Normal [facility] Comment on above: Result Comment: PCT >/=2.0 and <10 ng/mL: Systemic infection (sepsis) is likely, unless other causes are known, high risk for progession to severe systemic infection(severe sepsis) Performed By: #### P RL #### [facility] [address] [place] [address] Gage Fatou PCT header 4 SEE BELOW Normal [facility] Comment on above: Result Comment: PCT >/= 10 ng/mL: Important systemic inflammatory response almost exclusively due to severe bacterial sepsis or septic shock, high likelihood of severe sepsis or septic shock Performed By: #### P RL #### [facility] [address] [place] [address] Gagemoncho Lainez PROCALCITONIN <0.05 Normal 0.00-0.50 [facility] Comment on above: Performed By: #### P RL #### [facility] [address] [place] [address] Gage Lainez PROF 14(COMP METB)on 019 Albumin [Mass/Vol] 3.9 g/dL Normal 3.5-5.0 [facility] Comment on above: Performed By: #### C DEXTER BRITTON, CMP #### [facility] [address] [place] [address] Gagemoncho Lainez Albumin/Globulin [Mass ratio] 1.0 {ratio} Normal [facility] Comment on above: Performed By: #### C ANNETTA BRITTONA, CMP #### [facility] [address] [place] [address] Gage Fatou ALP [Catalytic activity/Vol] 83 U/L Normal 38-126 [facility] Comment on above: Performed By: #### C ANNETTA BRITTONA, CMP #### [facility] [address] [place] [address] Gage Fatou ALT [Catalytic activity/Vol] 36 U/L Normal 21-72 [facility] Comment on above: Performed By: #### C ANNETTA BRITTONA, CMP #### [facility] [address] [place] [address] Gage Fatou Anion gap [Moles/Vol] 14.7 mmol/L Normal [facility] Comment on above: Performed By: #### C ANNETTA BRITTONA, CMP #### [facility] [address] [place] [address] Gage Fatou AST [Catalytic activity/Vol] 19 U/L Normal 17-59 [facility] Comment on above: Performed By: #### C ANNETTA BRITTONA, CMP #### [facility] [address] [place] [address] Gage Fatou Bilirubin Ql (U) 0.7 mg/dL Normal 0.2-1.3 [facility] Comment on above: Performed By: #### C RPANNETTAA, CMP #### [facility] [address] [place] [address] Gage Fatou Calcium [Mass/Vol] 8.6 mg/dL Normal 8.4-10.2 [facility] Comment on above: Performed By: #### C RP LIPA, CMP #### [facility] [address] [place] [address] Gage Fatou Chloride [Moles/Vol] 103 mmol/L Normal 98-107 [facility] Comment on above: Performed By: #### C RP LIPA, CMP #### [facility] [address] [place] [address] Gage Fatou CO2 [Moles/Vol] 24.9 mmol/L Normal 22.0-30.0 [facility] Comment on above: Performed By: #### C RP, LIPA, CMP #### [facility] [address] [place] [address] Gage Fatou Creatinine [Mass/Vol] 0.86 mg/dL Normal 0.66-1.25 [facility] Comment on above: Performed By: #### C RP LIPA, CMP #### [facility] [address] [place] [address] Gage Fatou EGFR-AF MONTENEGRIN >60 Normal >=60 [facility] Comment on above: Performed By: #### C RP, LIPA, CMP #### [facility] [address] [place] [address] Gage Fatou EGFR-NON AF MONTENEGRIN >60 Normal >=60 [facility] Comment on above: Performed By: #### C RP, LIPA, CMP #### [facility] [address] [place] [address] Gage Fatou Globulin (S) [Mass/Vol] 4.0 g/dL Normal [facility] Comment on above: Performed By: #### C RP, LIPA, CMP #### [facility] [address] [place] [id number] Gage Fatou Glucose [Mass/Vol] 113 mg/dL Critically high 74-106 [facility] Comment on above: Performed By: #### C RP LIPA, CMP #### [facility] [address] [place] [address] Gage Fatou Potassium [Moles/Vol] 3.6 mmol/L Normal 3.4-5.0 [facility] Comment on above: Performed By: #### C RP, LIPA, CMP #### [facility] [address] [place] [address] Gage Fatou Protein [Mass/Vol] 7.9 g/dL Normal 6.1-8.2 [facility] Comment on above: Performed By: #### C RP, LIPA, CMP #### [facility] [address] [place] [address] Gage Fatou Sodium [Moles/Vol] 139 mmol/L Normal 137-145 [facility] Comment on above: Performed By: #### C RP, LIPA, CMP #### [facility] [address] [place] [address] Gage Fatou Urea nitrogen [Mass/Vol] 11.0 mg/dL Normal 9.0-20.0 [facility] Comment on above: Performed By: #### C RP, LIPA, CMP #### [facility] [address] [place] [id number] Gage Fatou Urea nitrogen/Creatinine [Mass ratio] 12.8 mg/mg Normal [facility] Comment on above: Performed By: #### C RP, LIPA, CMP #### [facility] [address] [place] [id number] Gage Fatou SED RATE [facility] 2018 SED RATE 17 mm/hr Critically high <=15 [facility] Comment on above: Performed By: #### S EDR #### [facility] [address] [place] [id number] Gage Fatou SEDRH METHOD AND NORMAL CHANGE 08/20/15. RESULTS ARE NOT AFFECTED BY HEMATOCRIT. Normal [facility] Comment on above: Performed By: #### S EDR #### [facility] [address] [place] [id number] Gage Lainez XR ABD FLAT UP/PA Cale 05-01 XR ABD FLAT UP/PA CH Patient: ARTUR PHAM Exam Date: 05/01/2019 : 1975 Gender:M Ordering : TAPAN SERNA PA Admission #: [id number] Family : DR PITO NARAYANAN D.O. Order #: [id number] CLICK HERE TO VIEW EXAM RADIOLOGY REPORT [...] Brodie Ayala M.D. on 05/01/2019 at 15:21 Normal [facility] Encounters Encounter Date Encounter Type Care Provider Facility Start: 09-04-2024 End: 09-04-2024 Bamboo flowsheet Noble Lima DO Work Phone: [facility] Start: 09-04-2024 End: 09-04-2024 Bamboo flowsheet Noble Lima DO Work Phone: [facility] Start: 09-04-2024 End: 09-04-2024 ambulatory NOBLE LIMA Not Available Start: 09-04-2024 End: 09-04-2024 Patient encounter procedure Noble Lima DO Work Phone: [facility] Comment on above: Carpal tunnel syndro me on both sides (Primary Dx) Start: 08-18-2024 End: 08-18-2024 ambulatory Sunny Goetz MD Facility: [facility] Start: 08-11-2024 End: 08-11-2024 ambulatory Bertha L Robin Facility:[facility] Start: 05-30-2024 End: 05-30-2024 ambulatory Bertha L Robin Facility:[facility] Start: 11-20-2023 End: 11-20-2023 ambulatory Bertha L Robin Facility:[facility] Start: 10-15-2023 End: 10-15-2023 ambulatory Bertha L Robin Facility:[facility] Start: 09-26-2023 End: 09-26-2023 Lab Drop off Bertha L Robin [facility] Start: 09-26-2023 End: 09-26-2023 ambulatory Bertha L Robin Facility:[facility] Start: 09-21-2023 ambulatory Bertha Robin Facility:[facility] Start: 08-19-2019 End: 08-20-2019 Patient encounter procedure [facility] [employer] [facility] Facility:[facility] Start: 06-26-2019 End: 06-27-2019 Patient encounter procedure DOCTOR BOYKIN Facility:[facility] Start: 06-25-2019 End: 06-26-2019 Patient encounter procedure [facility] Facility:[facility] Start: 05-01-2019 End: 05-02-2019 Patient encounter procedure CARMEN SALAZAR Facility:[facility] Procedures Date Procedure Procedure Detail Performing Clinician Start: 09-04-2024 End: 09-04-2024 Needle emg ea extremty w/paraspinl area complete Noble Lima DO Work Phone: Start: 07-16-2015 Surgical procedure Bertha Robin Plan of Treatment Date Care Activity Detail Author Start: 03-16-2024 Influenza vaccination Influenza Vacc ine (#1) [facility] Start: 1975 Screening for malign ant neoplasm of colon [facility] Payers Date Payer Category Payer Private Health Insurance JACKIE FREEMAN [id number] 2024 Unknown [id number] 2024 Unknown 2023 Self-pay 1974 Unknown [id number] [id number]. 2.593 1974 Unknown [id number] 2.16840.1.964620.3.579. 2.593 1974 Unknown [id number] 2.840.1.257821.3.579. 2.593 1974 Unknown [id number] 2.16840.1.570032.3.579. 2.593 1974 Unknown [id number] 2.16.840.1.691753.3.579. 2.727 1974 Unknown [id number] 2.16840.1.562293.3.579. 2.727 1974 Unknown [id number] 2.16840.1.520870.3.579. 2.727 1974 Unknown [id number] 2.16840.1.001914.3.579. 2.727 1974 Unknown [id number] 2.16.840.1.482528.3.579. 2.727 1974 Unknown [id number] 2.16840.1.681671.3.579. 2.727 1974 Unknown [id number] 2.16840.1.151210.3.579. 2.196 1974 Unknown [id number] 2.16.840.1.116351.3.579. 2.1259 1959 Private Health Insurance [id number] Social History Date Type Detail Facility Start: 09-26-2023 Tobacco smoking status Ex-smoker (finding) [facility] Sex Assigned At Male [facility] Tobacco smoking status NHIS Tobacco smoking consumption unknown [facility] Start: 1975 Sex assigned at Not on file [facility] History of Present illness Narrative 09-04-2024 Noble Lima DO - 09/04/2024 1:30 PM EST Note Date & Type Note Facility 09-04-2024 History of Presen t illness Narrative Images from the original note were not included. Reason for Appointment: EMG Patient: Artur Pham : 1975 EMG Computer: [employer] Referring Physician: Bertha Mcdowell NP / Dr. Sunny Goetz EMG: JENNI pulp mixer: Judson Yin RT(R) Office Location: [place] Reason for EMG: c/o numbness/tingling in bilateral forearms/hands especially in fingers R>L. Hx of surgery to right shoulder. No hx of DM. Not on blood thinners. Comments: Procedure was explained to the patient who expressed understanding. Patient appeared to have tolerated the test well despite some discomfort due to the nature of the test. documented in this encounter [facility] Evaluation + Plan note Note Date & Type Note Facility Evaluation + Plan note No data available for this section [facility] Evaluation note Note Date & Type Note Facility Evaluation note Diagnosis Carpal tunnel syndrome on both sides- Primary Carpal tunnel syndrome documented in this encounter [facility] Discharge instructions Note Date & Type Note Facility Hospital Discharge instructions No data available for this section [facility] Progress note Note Date & Type Note Facility Progress note No data available for this section [facility] Reason for visit Narrative Other Medical (Routine) - Closed Note Date & Type Note Facility Reason for visit Narrative Specialty Diagnoses / Procedures Referred By Crista law Referred To Contact Neurology Diagnoses Pain in right wrist Carpal tunnel syndrome, unspecified upper limb Procedures WI NEEDLE EMG EA EXTREMTY W/PARASPINL AREA COMPLETE WI NERVE CONDUCTION STUDIES 9-10 STUDIES Bertha Mcdowell MD [address] [place] [address] Phone: tel: fax: Brodie Pascual MD [address] [place] [address] Phone: tel: fax: Referral ID Status Reason Start Date Expiration Date V isits Requested Visits Authorized [id number] Closed Perform Procedure 08/15/2024 02/11/2025 1 1 [facility] Summary Purpose Family History No Family History Records Found No data available for this section No Family History Records FoundNo Family History Records FoundNo Family History Records Found Advance Directives No Advanced Directives Records FoundNo Advanced Directives Records FoundNo Advanced Directives Records FoundNo Advanced Directives Records Found Additional Source Comments (unrecognized sect ion and content) No Status Records FoundNo Status Records FoundNo Status Records FoundNo Status Records Found INFORMATION SOURCE (unrecogn ized section and content) DATE CREATED AUTHOR 09/26/2019 [facility] DATE CREATED AUTHOR AUTHOR'S ORGANIZ ATION 08/13/2024 [facility] DATE CREATED AUTHOR AUTHOR'S ORGANIZ ATION 08/21/2024 [facility] DATE CREATED AUTHOR AUTHOR'S ORGANIZ ATION 09/06/2024 [facility] EPIC Patient Care team informatio n (unrecognized section and content) [employer] Tool Shar[employer]er Relationship Specialty Start Date End Date Unallocated, Margarita Guo MD [address] [place] [address] PCP - General Family Medicine 08/15/24 Bertha Mcdowell MD [address] [place] [address] Referring Physician Family Medicine 08/15/24 [employer] Relationship Specialty Start Date End Date Unallocated, Margarita Guo MD [facility] [place] [address] PCP - General Family Medicine 08/15/24 Bertha Mcdowell MD [address] [place] [address] Referring Physician Family Medicine 08/15/24 FOR RECORDS PERTAINING TO PATIENTS WHO ARE [...] BE BASED ON THE PRIMARY CLINICAL RECORDS. [employer] provides no warranty or guarantee of the accuracy or completeness of information in this document.
--- NOTE | 2024-09-08 14:45 | P.CN_ITS ---
Consult Note: HPI Data of Consult Patient: known to practice within the last 3 years Consult date: 09/08/24 Requesting Physician: Sunny Goetz MD Primary Care Provider: SAGE MCDOWELL Consult Narrative Reason for consult: bilateral hand pain Narrative: 49yom who presents for assessment. notes persistence of bilateral hand pain. imaging reviewed, no acute findings. EMG shows findings consistent with bilateral carapal tunnel. tried gabapentin, developed a rash. uses ibuprofen. cc:: CC: Sunny Goetz MD Review of Systems ROS Status of ROS 10 or more systems reviewed and unremark able except as noted in history and below [facility] Surgical History History of repair of left rotator cuff ?Z98.890 - Other specified postprocedural states (ICD-10) Meds Home Medications and Allergies Home Medications ?Medication ?Instructions ?Recorded ?Confirmed ?Type gabapentin 300 mg capsule 300 mg PO DAILY 08/18/24 08/18/24 History celecoxib 200 mg capsule (Celebrex) 200 mg PO BID PRN pain #60 caps 09/08/24 Rx Allergies Allergy/AdvReac Type Severity Reaction Status Date / Time No Known Drug Allergies Allergy Verified 08/18/24 14:59 Exam Narrative Exam Narrative: Psych-alert and oriented x 3.? Attentive and appropriate, constitutionally normal, displays normal mood and affect per situation.? There are no obvious deficits in memory, reasoning, or intellect.? Skin-no obvious rashes, bruising, or erythema noted to the patient's area of pain.? Extremities-upper extremities are warm with minimal edema and palpable pulses. Cervical- tenderness to palpation noted in the cervical spine and paraspinal musculature.? Pain is elicited with flexion, extension, and lateral rotation of the cervical spine.? Range of motion is diminished due to pain. Facet loading maneuvers are negative.? Strength-unremarkable and within normal limits Sensory-no notable sensory deficits in the bilateral upper extremities to touch or pinprick with the exception to decreased sensation to bilateral hands. Coordination remains intact.? Gait remains non-antalgic. Assessment and Plan Assessment and Plan (1) Carpal tunnel syndrome on both sides: Plan 49yom who presents for assessment. imaging reviewed, as noted. emg findings reviewed. discussed that eval with ortho most prudent, as may benefit from carpa l tunnel injections. will refer him today. meds reviewed. will trial celebrex 200mg bid prn. follow up after eval.
== END 2024-09-08 13:34 | disposition home or self-care (01) ==
PROVIDERS: PCP Nurse Practitioner; Visit Provider Anesthesiology
DX: G56.03 Carpal tunnel syndrome, bilateral upper limbs (principal)
CPT/HCPCS: G0463